=== PATIENT | male | born 1955 | race Caucasian/White ===

== ENCOUNTER 2018-05-21 09:45 | Inpatient (IN) | payer MEDICARE, OTHER ==
[~2018-05-21] VITALS: Ht 175.3 cm; Wt 86.9 kg
[2018-05-21] MEDS ORDERED: methylPREDNISolone SOD SUCC 125 MG/2 ML ONE (09:53)
[2018-05-21] MEDS ORDERED: methylPREDNISolone SOD SUCC 125 MG/2 ML IVPush SCH (10:00)
[2018-05-21 10:16] LABS: BASOPHILS # (AUTO) 0.01 x10^3/uL (0-0.1); BASOPHILS % (AUTO) 0 % (0-1); EOSINOPHILS # (AUTO) 0.05 x10^3/uL (0-0.4); EOSINOPHILS % (AUTO) 0 % (1-7); LYMPHOCYTES # (AUTO) 0.46 x10^3/uL (1-3.4); LYMPHOCYTES % (AUTO) 3 % (22-44); MD NO; MEAN CORPUSCULAR HEMOGLOBIN 32.8 pg (27.5-34.5); MEAN CORPUSCULAR HGB CONC 33.1 g/dL (33.2-36.2); MEAN CORPUSCULAR VOLUME 99.2 fL (81-97); MEAN PLATELET VOLUME 9.3 fL (7.4-10.4); MONOCYTES # (AUTO) 0.92 x10^3/uL (0.2-0.8); MONOCYTES % (AUTO) 6 % (2-9); NEUTROPHILS # (AUTO) 14.18 x10^3/uL (1.8-6.8); NEUTROPHILS % (AUTO) 91 % (42-75); PLATELET COUNT 216 x10^3/uL (130-400); RED BLOOD COUNT 4.47 x10^6/uL (4.38-5.82); RED CELL DISTRIBUTION WIDTH 12.8 % (9.4-14.8)
[2018-05-21 10:28] LABS: INTERNATIONAL NORMALIZED RATIO 1.16 (0.93-1.1); PROTHROMBIN TIME 12.2 Seconds (9.6-11.5)
[2018-05-21 10:29] LABS: ALBUMIN 3.4 g/dL (3.4-5.0); ANION GAP 4 mmol/L (5-15); CALCIUM 8.4 mg/dL (8.5-10.1); CHLORIDE 109 mmol/L (98-107)
[2018-05-21] MEDS ORDERED: methylPREDNISolone SOD SUCC 125 MG/2 ML IVPush ONE (10:30)
[2018-05-21 10:33] LABS: TROPONIN I 0.039 ng/mL (0.000-0.045)
[2018-05-21] MEDS ORDERED: SODIUM CHLORIDE FLUSH 10ML SYR IVF ONE (11:00)
[2018-05-21] MEDS ORDERED: CEFTRIAXONE PMX 1GM/50ML 50 ML IV ONE (11:30)
[2018-05-21] MEDS ORDERED: AZITHROMYCIN 500 MG in SODIUM CHLORIDE 0.9% 250 ML IV ONE (11:30)
[2018-05-21] MEDS ORDERED: SODIUM CHLORIDE 0.9% 1,000ML IVBOLUS ONE (11:30)
[2018-05-21] MEDS ORDERED: ALBU0.63 NEB (11:38)
[2018-05-21] MEDS ORDERED: TIOT18CA INH (11:38)
[2018-05-21] MEDS ORDERED: TRAM50TA2 PO (11:38)
[2018-05-21] MEDS ORDERED: BUDE10.2 INH (11:38)
[2018-05-21] MEDS ORDERED: ONDANSETRON 2MG/ML, 2ML IVPush PRN (12:00)
[2018-05-21] MEDS ORDERED: POLYETHYLENE GLYCOL 17 GM PACKET PO PRN (12:00)
[2018-05-21] MEDS ORDERED: PLEASE ENTER ALLERGIES MC SCH (12:00)
[2018-05-21] MEDS: TEMPLATE NON-FORMULARY MED. (Tiotropium Bromide** (Spiriva**) 18 MCG) INH SCH (12:00)
[2018-05-21] MEDS ORDERED: GUAIFENESIN/DM 200-20MG, 10ML UDC PO PRN (12:00)
[2018-05-21] MEDS: BUDESONIDE 0.5 MG/2 ML INHA INH SCH ×2 (12:00→19:12)
[2018-05-21] MEDS ORDERED: DOCUSATE 100 MG CAPSULE PO PRN (12:00)
[2018-05-21] MEDS ORDERED: ACETAMINOPHEN 325 MG TABLET PO PRN (12:00)
[2018-05-21 12:20] VITALS: BP 107/72
[2018-05-21] MEDS: ENOXAPARIN 40 MG/0.4 ML SQ SCH (12:41)
[2018-05-21] MEDS: methylPREDNISolone SOD SUCC 125 MG/2 ML IVPush SCH ×2 (13:30→22:07)
[2018-05-21] MEDS: CEFTRIAXONE PMX 1GM/50ML 50 ML IV SCH (13:30)
[2018-05-21 16:31] VITALS: BP 134/90
[2018-05-21] MEDS: ALBUTEROL/IPRATROPIUM 2.5MG/0.5MG, 3 ML NPPB SCH (18:01)
[2018-05-21 19:30] VITALS: BP 126/68
[2018-05-21] MEDS: SODIUM CHLORIDE FLUSH 10ML SYR IVF SCH (20:18)
[2018-05-22 01:34] VITALS: BP 109/57
[2018-05-22] MEDS: ALBUTEROL/IPRATROPIUM 2.5MG/0.5MG, 3 ML NPPB PRN (04:00)
[2018-05-22] MEDS: methylPREDNISolone SOD SUCC 125 MG/2 ML IVPush SCH ×3 (05:46→21:13)
[2018-05-22 05:51] LABS: CHLORIDE 107 mmol/L (98-107)
[2018-05-22 06:04] LABS: ANION GAP 8 mmol/L (5-15); CALCIUM 8.2 mg/dL (8.5-10.1); CREATININE 1.14 mg/dL (0.7-1.3)
[2018-05-22] MEDS: ALBUTEROL/IPRATROPIUM 2.5MG/0.5MG, 3 ML NPPB SCH ×4 (06:53→19:57)
[2018-05-22] MEDS: BUDESONIDE 0.5 MG/2 ML INHA INH SCH ×2 (06:53→19:57)
[2018-05-22 07:02] VITALS: BP 112/63
[2018-05-22] MEDS: TEMPLATE NON-FORMULARY MED. (Tiotropium Bromide** (Spiriva**) 18 MCG) INH SCH (09:00)
[2018-05-22] MEDS: SENNA/DOCUSATE TABLET PO SCH (09:00)
[2018-05-22] MEDS: SODIUM CHLORIDE FLUSH 10ML SYR IVF SCH ×2 (09:01→20:05)
[2018-05-22 12:32] VITALS: BP 117/68
[2018-05-22] MEDS: ENOXAPARIN 40 MG/0.4 ML SQ SCH (12:46)
[2018-05-22] MEDS: LORazepam 0.5MG TABLET PO PRN ×2 (12:50→18:30)
[2018-05-22] MEDS: AZITHROMYCIN 500 MG in SODIUM CHLORIDE 0.9% 250 ML IV SCH (12:50)
[2018-05-22] MEDS: CEFTRIAXONE PMX 1GM/50ML 50 ML IV SCH (14:06)
[2018-05-22] MEDS ORDERED: MAGNESIUM SULFATE PMX 2GM/50ML 50 ML IV ONE (14:30)
[2018-05-22 18:31] VITALS: BP 127/79
[2018-05-23 01:14] VITALS: BP 124/66
[2018-05-23] MEDS: LORazepam 0.5MG TABLET PO PRN ×4 (04:22→19:56)
[2018-05-23] MEDS: ALBUTEROL/IPRATROPIUM 2.5MG/0.5MG, 3 ML NPPB PRN (04:26)
[2018-05-23] MEDS: methylPREDNISolone SOD SUCC 125 MG/2 ML IVPush SCH ×3 (05:18→21:38)
[2018-05-23 05:38] LABS: ANION GAP 7 mmol/L (5-15); CALCIUM 8.4 mg/dL (8.5-10.1); CHLORIDE 103 mmol/L (98-107)
[2018-05-23] MEDS: BUDESONIDE 0.5 MG/2 ML INHA INH SCH ×2 (07:22→18:43)
[2018-05-23] MEDS: ALBUTEROL/IPRATROPIUM 2.5MG/0.5MG, 3 ML NPPB SCH ×4 (07:22→18:43)
[2018-05-23 07:43] VITALS: BP 127/69
[2018-05-23] MEDS: TEMPLATE NON-FORMULARY MED. (Tiotropium Bromide** (Spiriva**) 18 MCG) INH SCH (08:10)
[2018-05-23] MEDS: SODIUM CHLORIDE FLUSH 10ML SYR IVF SCH ×2 (10:19→20:00)
[2018-05-23] MEDS: SENNA/DOCUSATE TABLET PO SCH (10:19)
[2018-05-23] MEDS: AZITHROMYCIN 500 MG in SODIUM CHLORIDE 0.9% 250 ML IV SCH (11:33)
[2018-05-23] MEDS: ENOXAPARIN 40 MG/0.4 ML SQ SCH (11:33)
[2018-05-23] MEDS: CEFTRIAXONE PMX 1GM/50ML 50 ML IV SCH (13:40)
[2018-05-23 14:31] VITALS: BP 124/62
[2018-05-23 18:37] VITALS: BP 132/84
[2018-05-24 00:44] VITALS: BP 141/79
[2018-05-24] MEDS: ALBUTEROL/IPRATROPIUM 2.5MG/0.5MG, 3 ML NPPB SCH ×5 (01:24→18:58)
[2018-05-24] MEDS: methylPREDNISolone SOD SUCC 125 MG/2 ML IVPush SCH ×3 (05:34→21:13)
[2018-05-24] MEDS: BUDESONIDE 0.5 MG/2 ML INHA INH SCH ×2 (06:28→18:58)
[2018-05-24 07:08] VITALS: BP 143/84
[2018-05-24] MEDS: LORazepam 0.5MG TABLET PO PRN ×5 (07:28→23:36)
[2018-05-24] MEDS: SODIUM CHLORIDE FLUSH 10ML SYR IVF SCH ×2 (09:00→21:00)
[2018-05-24] MEDS: SENNA/DOCUSATE TABLET PO SCH (09:00)
[2018-05-24] MEDS: TEMPLATE NON-FORMULARY MED. (Tiotropium Bromide** (Spiriva**) 18 MCG) INH SCH (09:00)
[2018-05-24] MEDS: AZITHROMYCIN 500 MG in SODIUM CHLORIDE 0.9% 250 ML IV SCH (11:42)
[2018-05-24] MEDS: ENOXAPARIN 40 MG/0.4 ML SQ SCH (13:00)
[2018-05-24 13:47] VITALS: BP 139/87
[2018-05-24] MEDS: CEFTRIAXONE PMX 1GM/50ML 50 ML IV SCH (14:25)
[2018-05-24 19:00] VITALS: BP 148/89
[2018-05-24] MEDS: ALBUTEROL/IPRATROPIUM 2.5MG/0.5MG, 3 ML NPPB PRN (22:31)
[2018-05-25 01:40] VITALS: BP 108/63
[2018-05-25 01:49] VITALS: BP 148/75
[2018-05-25] MEDS: ALBUTEROL/IPRATROPIUM 2.5MG/0.5MG, 3 ML NPPB PRN (03:16)
[2018-05-25] MEDS: LORazepam 0.5MG TABLET PO PRN ×5 (03:39→22:10)
[2018-05-25] MEDS: methylPREDNISolone SOD SUCC 125 MG/2 ML IVPush SCH ×3 (05:44→22:10)
[2018-05-25] MEDS: ALBUTEROL/IPRATROPIUM 2.5MG/0.5MG, 3 ML NPPB SCH ×4 (07:05→19:18)
[2018-05-25 07:23] VITALS: BP 127/85
[2018-05-25] MEDS: GUAIFENESIN 200 MG TABLET PO SCH ×4 (07:42→22:10)
[2018-05-25] MEDS: TEMPLATE NON-FORMULARY MED. (Tiotropium Bromide** (Spiriva**) 18 MCG) INH SCH (09:00)
[2018-05-25] MEDS: SODIUM CHLORIDE FLUSH 10ML SYR IVF SCH ×2 (09:00→21:00)
[2018-05-25] MEDS: SENNA/DOCUSATE TABLET PO SCH (09:00)
[2018-05-25] MEDS: BUDESONIDE 0.5 MG/2 ML INHA INH SCH ×2 (11:15→19:18)
[2018-05-25] MEDS: CEFTRIAXONE PMX 1GM/50ML 50 ML IV SCH (12:37)
[2018-05-25] MEDS: AZITHROMYCIN 500 MG in SODIUM CHLORIDE 0.9% 250 ML IV SCH (12:38)
[2018-05-25] MEDS: ENOXAPARIN 40 MG/0.4 ML SQ SCH (13:00)
[2018-05-25 13:29] VITALS: BP 143/93
[2018-05-25 18:50] VITALS: BP 144/82
[2018-05-26 01:16] VITALS: BP 140/79
[2018-05-26] MEDS: ALBUTEROL/IPRATROPIUM 2.5MG/0.5MG, 3 ML NPPB SCH ×6 (01:48→19:51)
[2018-05-26] MEDS: LORazepam 0.5MG TABLET PO PRN ×4 (03:20→21:13)
[2018-05-26] MEDS: methylPREDNISolone SOD SUCC 125 MG/2 ML IVPush SCH ×3 (06:29→22:36)
[2018-05-26] MEDS: GUAIFENESIN 200 MG TABLET PO SCH ×4 (06:29→21:14)
[2018-05-26] MEDS: BUDESONIDE 0.5 MG/2 ML INHA INH SCH ×2 (07:05→19:50)
[2018-05-26 07:30] VITALS: BP 129/73
[2018-05-26] MEDS: TEMPLATE NON-FORMULARY MED. (Tiotropium Bromide** (Spiriva**) 18 MCG) INH SCH (08:49)
[2018-05-26] MEDS: AZITHROMYCIN 500 MG TABLET PO SCH (08:49)
[2018-05-26] MEDS: AMOXICILLIN/CLAV 875-125MG TABLET PO SCH ×2 (08:49→21:14)
[2018-05-26] MEDS: SODIUM CHLORIDE FLUSH 10ML SYR IVF SCH ×2 (08:49→21:00)
[2018-05-26] MEDS: SENNA/DOCUSATE TABLET PO SCH (08:50)
[2018-05-26] MEDS: ENOXAPARIN 40 MG/0.4 ML SQ SCH (14:00)
[2018-05-26 14:11] VITALS: BP 133/78
[2018-05-26 18:58] VITALS: BP 130/84
[2018-05-27 01:51] VITALS: BP 132/76
[2018-05-27] MEDS: ALBUTEROL/IPRATROPIUM 2.5MG/0.5MG, 3 ML NPPB SCH ×6 (02:09→22:44)
[2018-05-27] MEDS: LORazepam 0.5MG TABLET PO PRN ×5 (02:17→20:23)
[2018-05-27] MEDS: methylPREDNISolone SOD SUCC 125 MG/2 ML IVPush SCH (06:05)
[2018-05-27] MEDS: GUAIFENESIN 200 MG TABLET PO SCH ×4 (06:05→20:24)
[2018-05-27 06:37] VITALS: BP 145/81
[2018-05-27] MEDS: BUDESONIDE 0.5 MG/2 ML INHA INH SCH ×2 (07:05→19:44)
[2018-05-27] MEDS: AZITHROMYCIN 500 MG TABLET PO SCH (08:16)
[2018-05-27] MEDS: AMOXICILLIN/CLAV 875-125MG TABLET PO SCH ×2 (08:16→20:24)
[2018-05-27] MEDS: SODIUM CHLORIDE FLUSH 10ML SYR IVF SCH ×2 (09:00→20:24)
[2018-05-27] MEDS: TEMPLATE NON-FORMULARY MED. (Tiotropium Bromide** (Spiriva**) 18 MCG) INH SCH (09:00)
[2018-05-27] MEDS: SENNA/DOCUSATE TABLET PO SCH (09:00)
[2018-05-27] MEDS ORDERED: AZIT500T5 PO (10:06)
[2018-05-27] MEDS ORDERED: GUAI200T3 PO (10:06)
[2018-05-27] MEDS ORDERED: PRED20TA PO (10:06)
[2018-05-27] MEDS ORDERED: AMOX1TAB12 PO (10:06)
[2018-05-27 11:46] VITALS: BP 142/89
[2018-05-27 12:00] VITALS: BP 142/89
[2018-05-27] MEDS: ENOXAPARIN 40 MG/0.4 ML SQ SCH (13:20)
[2018-05-27 19:21] VITALS: BP 139/82
[2018-05-28] MEDS: LORazepam 0.5MG TABLET PO PRN ×3 (00:33→09:00)
[2018-05-28 01:49] VITALS: BP 136/80
[2018-05-28] MEDS: GUAIFENESIN 200 MG TABLET PO SCH (05:47)
[2018-05-28 06:03] VITALS: BP 140/89
[2018-05-28] MEDS: BUDESONIDE 0.5 MG/2 ML INHA INH SCH (07:40)
[2018-05-28] MEDS: SENNA/DOCUSATE TABLET PO SCH (09:00)
[2018-05-28] MEDS: AZITHROMYCIN 500 MG TABLET PO SCH (09:00)
[2018-05-28] MEDS: TEMPLATE NON-FORMULARY MED. (Tiotropium Bromide** (Spiriva**) 18 MCG) INH SCH (09:00)
[2018-05-28] MEDS: AMOXICILLIN/CLAV 875-125MG TABLET PO SCH (09:00)
[2018-05-28] MEDS: SODIUM CHLORIDE FLUSH 10ML SYR IVF SCH (09:01)
== END 2018-05-28 11:23 | disposition home or self-care (01) | DRG 871 ==
LOC: ED 10:37 → EDIP 11:12 → SUATTDRO 11:34 → 3NE 12:00
PROVIDERS: ADMIT Family Medicine; ATTEND Family Medicine
DX: A41.9 Sepsis, unspecified organism (principal); J18.9 Pneumonia, unspecified organism; J96.21 Acute and chronic respiratory failure with hypoxia; J44.0 Chronic obstructive pulmonary disease with (acute) lower respiratory infection; J44.1 Chronic obstructive pulmonary disease with (acute) exacerbation; Z87.891 Personal history of nicotine dependence; Z99.81 Dependence on supplemental oxygen; Z83.3 Family history of diabetes mellitus
CPT/HCPCS: 36415; 71045; 80048; 82040; 83735; 83880; 84484; 85025; 85610; 85730; 87040; 93005; 93306; 94640; 94664; 96374; 99291; G0378; J0456; J0696; J7620; J7626; J2930; J3475; J7030; J7050; J7512

== ENCOUNTER 2018-08-26 13:53 | Inpatient (IN) | payer MEDICARE, OTHER ==
[~2018-08-26] VITALS: Ht 175.3 cm; Wt 79.0 kg
[~2018-08-26 13:53] MED LIST: ALBU0.63 NEB; AMOX1TAB12 PO; AZIT500T5 PO; BUDE10.2 INH; GUAI200T3 PO; PRED20TA PO; TIOT18CA INH; TRAM50TA2 PO
--- NOTE | 2018-08-26 14:05 | NUR ---
Pt presents to ED by care flight with c/o sob and increase in oxygen requirements from baseline for one day. Pt is on 5 L oxygen via facemask and remains above 90%. Pt is tachycardic in 130's s/p two breathing treatments with care flight. Pt is AOX4, cms is intact, skin is intact, pink, warm, and dry. NADN. Pt connected to all monitors. Call light within reach. Pt has 18g PIV placed in left forearm banquet captain. PT denies cp, n/v/d, trauma, lightheadedness, or dizziness.
[2018-08-26] MEDS ORDERED: SODIUM CHLORIDE 0.9% 1,000 ML IV ONE (14:10)
[2018-08-26] MEDS ORDERED: methylPREDNISolone SOD SUCC 125 MG/2 ML ONE ×2 (14:18→23:15)
[2018-08-26] MEDS ORDERED: ALBUTEROL SULFATE 2.5 MG/3 ML ONE (14:21)
[2018-08-26] MEDS ORDERED: DOXYCYCLINE 100 MG in DEXTROSE 5% 250 ML IV ONE (14:30)
[2018-08-26] MEDS ORDERED: methylPREDNISolone SOD SUCC 125 MG/2 ML IVP ONE (14:30)
[2018-08-26] MEDS ORDERED: SODIUM CHLORIDE FLUSH 10ML SYR IVF ONE (14:30)
[2018-08-26 14:44] LABS: BASOPHILS # (AUTO) 0.01 x10^3/uL (0-0.1); BASOPHILS % (AUTO) 0 % (0-1); EOSINOPHILS # (AUTO) 0.05 x10^3/uL (0-0.4); EOSINOPHILS % (AUTO) 1 % (1-7); LYMPHOCYTES # (AUTO) 0.28 x10^3/uL (1-3.4); LYMPHOCYTES % (AUTO) 3 % (22-44); MD NO; MEAN CORPUSCULAR HEMOGLOBIN 32.4 pg (27.5-34.5); MEAN CORPUSCULAR HGB CONC 33.1 g/dL (33.2-36.2); MEAN CORPUSCULAR VOLUME 97.9 fL (81-97); MEAN PLATELET VOLUME 8.9 fL (7.4-10.4); MONOCYTES # (AUTO) 0.96 x10^3/uL (0.2-0.8); MONOCYTES % (AUTO) 9 % (2-9); NEUTROPHILS # (AUTO) 8.85 x10^3/uL (1.8-6.8); NEUTROPHILS % (AUTO) 87 % (42-75); PLATELET COUNT 222 x10^3/uL (130-400); RED BLOOD COUNT 5.21 x10^6/uL (4.38-5.82); RED CELL DISTRIBUTION WIDTH 13.9 % (9.4-14.8)
[2018-08-26 14:57] LABS: ALANINE AMINOTRANSFERASE 34 U/L (12-78); ALBUMIN 3.8 g/dL (3.4-5.0); ANION GAP 9 mmol/L (5-15); CALCIUM 9.2 mg/dL (8.5-10.1); CHLORIDE 100 mmol/L (98-107); CREATININE 1.12 mg/dL (0.7-1.3)
[2018-08-26 15:02] LABS: ALKALINE PHOSPHATASE 103 U/L (45-117); BILIRUBIN,TOTAL 1.2 mg/dL (0.2-1.0); TOTAL PROTEIN 7.2 g/dL (6.4-8.2)
[2018-08-26 15:06] LABS: TROPONIN I 0.123 ng/mL (0.000-0.045)
--- NOTE | 2018-08-26 15:08 | NUR ---
Provided pt food tray per request and sprite and milk. ED MD aware. PIV fluids and medication infusing per EMAR. NADN. PT connected to all monitors. All safety measures in place. No other needs requested at this time. Call light within reach.
--- NOTE | 2018-08-26 15:12 | NUR ---
DR. DO NOTIFIED OF TROP=0.123.
[2018-08-26] MEDS ORDERED: ASPIRIN 81 MG TABLET CHEW PO ONE (15:30)
[2018-08-26] MEDS ORDERED: ASPIRIN 81 MG TABLET CHEW ONE (15:31)
[2018-08-26] MEDS ORDERED: METOPROLOL 1 MG/ML, 5ML IVPush STA (15:42)
[2018-08-26] MEDS ORDERED: LORazepam 2 MG/ML, 1ML IVPush ONE (16:00)
[2018-08-26] MEDS ORDERED: morphine SULFATE 10 MG/ML, 1ML IVPush PRN (16:00)
[2018-08-26] MEDS ORDERED: ONDANSETRON ODT 4 MG PO PRN (16:00)
[2018-08-26] MEDS ORDERED: ONDANSETRON 2MG/ML, 2ML IVPush PRN (16:00)
[2018-08-26] MEDS ORDERED: LABETALOL 5MG/ML, 20ML IVPush PRN (16:00)
[2018-08-26] MEDS ORDERED: POLYETHYLENE GLYCOL 17 GM PACKET PO PRN (16:00)
[2018-08-26 16:45] LABS: INTERNATIONAL NORMALIZED RATIO 1.02 (0.93-1.1); PROTHROMBIN TIME 10.7 Seconds (9.6-11.5)
[2018-08-26] MEDS: methylPREDNISolone SOD SUCC 125 MG/2 ML IVPush SCH ×2 (17:05→23:56)
[2018-08-26] MEDS: DOXYCYCLINE 100MG TABLET PO SCH ×2 (17:05→23:56)
[2018-08-26 17:33] LABS: TROPONIN I 0.186 ng/mL (0.000-0.045)
[2018-08-26] MEDS ORDERED: CEFAZOLIN PMX 1GM/50ML 50 ML ONE (17:38)
[2018-08-26] MEDS ORDERED: METOPROLOL 1 MG/ML, 5ML ONE (17:38)
[2018-08-26] MEDS ORDERED: LORazepam 2 MG/ML, 1ML ONE (17:39)
[2018-08-26] MEDS: CEFTRIAXONE PMX 1GM/50ML 50 ML IV SCH (17:49)
--- NOTE | 2018-08-26 18:04 | NUR ---
Pt provided medication per EMAR. NADN. PIV medicaiton infusing per EMAR. PT connected to all monitors. Pt watching TV. All safety measures in place.
--- NOTE | 2018-08-26 18:56 | NUR ---
Provided report to LOLA Hamilton. All questions answered. LOLA Hamilton to assume care of pt.
--- NOTE | 2018-08-26 19:31 | NUR ---
PT RESTING IN BED WITH EYES CLOSED. NO STATED COMPLAINTS AT THIS TIME. CALL LIGHT WITHIN REACH.
--- NOTE | 2018-08-26 20:06 | NUR ---
PT RESTING IN BED WITH EYES CLOSED. BILAT BEDRAILS UP.
--- NOTE | 2018-08-26 21:22 | NUR ---
PT REMAINS RESTING IN BED WITH EYES CLOSED. WILL CONTINUE TO MONITOR.
[2018-08-26] MEDS ORDERED: HEPARIN 5,000 UNITS/ML, 1ML IV ONE (22:00)
[2018-08-26 22:28] LABS: TROPONIN I 0.129 ng/mL (0.000-0.045)
--- NOTE | 2018-08-26 22:32 | NUR ---
PT RESTING IN BED. PT GIVEN REQUESTED BEVERAGES AND CRACKERS. PT REMAINS ON MONITORS.
[2018-08-26] MEDS ORDERED: HEPARIN 5,000 UNITS/ML, 1ML ONE (23:14)
[2018-08-26] MEDS ORDERED: DOXYCYCLINE 100MG TABLET ONE (23:15)
[2018-08-26] MEDS ORDERED: HEPARIN 25,000 UNITS/500ML PMX 500 ML ONE (23:15)
--- NOTE | 2018-08-26 23:57 | NUR ---
PT MEDICATED WITH ORDERED MEDS. PT ABLE TO REPOSITION HIMSELF IN BED. ALL NEEDS ADDRESSED. WILL CONTINUE TO MONITOR.
[2018-08-27] MEDS: HEPARIN 25,000 UNITS/500ML PMX 500 ML IV PRN (00:24)
--- NOTE | 2018-08-27 00:30 | NUR ---
ORDERED HEPARIN DRIP STARTED.
--- NOTE | 2018-08-27 01:11 | NUR ---
PT RESTING IN BED WITH EYES CLOSED. BILAT BEDRAILS UP. CALL LIGHT WITHIN REACH.
--- NOTE | 2018-08-27 02:03 | NUR ---
PT REMAINS RESTING IN BED WITH EYES CLOSED. NO NEEDS AT THIS TIME.
--- NOTE | 2018-08-27 03:04 | NUR ---
PT RESTING IN BED WITH EYES CLOSED.
--- NOTE | 2018-08-27 04:02 | NUR ---
PT UP WATCHING TV. NO STATED NEEDS. PT NOT IN DISTRESS.
--- NOTE | 2018-08-27 05:27 | NUR ---
PT RESTING CALMLY IN BED, WITH EYES CLOSED, RESP EVEN AND NON-LABORED. NO STATED NEEDS AT THIS TIME.
--- NOTE | 2018-08-27 06:29 | NUR ---
PT SITTING UP IN BED WATCHING TV. PT GIVEN BEVERAGE AND CRACKERS PER REQUEST. NO COMPLAINTS AT THIS TIME. WILL CONTINUE TO MONITOR.
[2018-08-27 06:44] LABS: ALANINE AMINOTRANSFERASE 31 U/L (12-78); ALBUMIN 3.1 g/dL (3.4-5.0); ANION GAP 7 mmol/L (5-15); CALCIUM 8.8 mg/dL (8.5-10.1); CHLORIDE 101 mmol/L (98-107); CREATININE 0.98 mg/dL (0.7-1.3)
[2018-08-27 06:49] LABS: ALKALINE PHOSPHATASE 80 U/L (45-117); BILIRUBIN,TOTAL 0.5 mg/dL (0.2-1.0); TOTAL PROTEIN 6.3 g/dL (6.4-8.2); TROPONIN I 0.067 ng/mL (0.000-0.045)
[2018-08-27 06:56] LABS: BASOPHILS # (AUTO) 0.01 x10^3/uL (0-0.1); BASOPHILS % (AUTO) 0 % (0-1); EOSINOPHILS % (AUTO) 0 % (1-7); LYMPHOCYTES # (AUTO) 0.21 x10^3/uL (1-3.4); LYMPHOCYTES % (AUTO) 5 % (22-44); MD NO; MEAN CORPUSCULAR HEMOGLOBIN 32.5 pg (27.5-34.5); MEAN CORPUSCULAR HGB CONC 33.4 g/dL (33.2-36.2); MEAN CORPUSCULAR VOLUME 97.3 fL (81-97); MEAN PLATELET VOLUME 8.6 fL (7.4-10.4); MONOCYTES # (AUTO) 0.18 x10^3/uL (0.2-0.8); MONOCYTES % (AUTO) 4 % (2-9); NEUTROPHILS % (AUTO) 91 % (42-75); PLATELET COUNT 196 x10^3/uL (130-400); RED BLOOD COUNT 4.59 x10^6/uL (4.38-5.82); RED CELL DISTRIBUTION WIDTH 13.2 % (9.4-14.8)
[2018-08-27] MEDS ORDERED: methylPREDNISolone SOD SUCC 125 MG/2 ML ONE ×2 (07:07→12:30)
[2018-08-27] MEDS: methylPREDNISolone SOD SUCC 125 MG/2 ML IVPush SCH ×3 (07:10→18:27)
--- NOTE | 2018-08-27 08:48 | NUR ---
cardiac rhythm strip printed/placed on chart
--- NOTE | 2018-08-27 09:27 | NUR ---
LATE ENTRY FOR 0700, SBAR RPT REC'D, AND PT CARE ASSUMED. PT OOB TO CHAIR, TRANSFERED ONTO HOSPITAL BED. VSS, PT WITH INCREASED SOB WITH ACTIVITY. RECOVERS AFTER PURSE LIP BREATHING.
[2018-08-27] MEDS: IPRATROPIUM 0.5 MG/2.5 ML INHA NPPB SCH ×2 (09:42→15:35)
[2018-08-27] MEDS ORDERED: IPRATROPIUM 0.5 MG/2.5 ML INHA ONE (09:42)
[2018-08-27 09:47] LABS: MICROSCOPIC INDICATED
--- NOTE | 2018-08-27 10:00 | NUR ---
RT CALLED PER PATIENT REQUEST. I FEEL TIGHT AND COULD USE A BREATHING TX. NO WHEEZING APPRECIATED/ POX 95%. HOWEVER WOB INCREASED (3 WORD SENTENCES) REMAINS ON 4L NC. RT TO BEDSIDE WHERE NEBULIZER WAS INITIATED WITH "GREAT IMPROVEMENT" PER PATIENT. PATIENT REMAINS ON HEPARIN DRIP W/ OUT COMPLICATION. REPEAT XA PLANNED FOR 12 NOON. ATE MOST OF BREAKFAST AND DENIES DISCOMFORT POST NEBULIZER. IN BED W/ CALL MILLER IN HAND/SIDERAILS UP. WILL CONTINUE TO MONITOR
[2018-08-27 10:05] LABS: CULTURE INDICATED? NO
[2018-08-27 10:08] LABS: AMPHETAMINE SCREEN, URINE Negative (Negative); BARBITURATE SCREEN, URINE Negative (Negative); BENZODIAZEPINE SCREEN, URINE Negative (Negative); CANNABINOID SCREEN, URINE Negative (Negative); COCAINE SCREEN, URINE Negative (Negative); METHADONE SCREEN, URINE Negative (Negative); OPIATE SCREEN, URINE Negative (Negative)
[2018-08-27] MEDS ORDERED: SENNA/DOCUSATE TABLET ONE (12:30)
[2018-08-27] MEDS ORDERED: PANTOPRAZOLE 40 MG IV ONE (12:30)
[2018-08-27] MEDS: SENNA/DOCUSATE TABLET PO SCH (12:35)
[2018-08-27] MEDS: PANTOPRAZOLE 40 MG IV IVPush SCH (12:35)
[2018-08-27] MEDS ORDERED: DOXYCYCLINE 100MG TABLET ONE (12:42)
[2018-08-27] MEDS: DOXYCYCLINE 100MG TABLET PO SCH (12:43)
[2018-08-27] MEDS ORDERED: HEPARIN 5,000 UNITS/ML, 1ML ONE (12:56)
[2018-08-27] MEDS: HEPARIN 5,000 UNITS/ML, 1ML IV PRN (13:02)
--- NOTE | 2018-08-27 13:05 | NUR ---
BREAK RN: HEPARIN ADJUSTED ORDERED, VERIFIED BY 2 RNS- MALINI AND DAVIAN. PATIENT C/O INCREASED ANXIETY WITH SOB, SP02 REMAINS NORMAL, PT GIVEN MEAL TRAY, TOLERATES WELL. WILL CONTINUE TO MONITOR.
--- NOTE | 2018-08-27 13:20 | NUR ---
REPORT CALLED TO LOLA GRANT. PLAN OF CARE DISCUSSED. PT AWARE OF PLAN.
[2018-08-27 14:23] VITALS: BP 114/68
[2018-08-27] MEDS ORDERED: SODIUM CHLORIDE 0.45% 1,000 ML IV SCH (15:00)
[2018-08-27] MEDS ORDERED: LORazepam 2 MG/ML, 1ML IVPush ONE (15:30)
[2018-08-27] MEDS ORDERED: LORazepam 0.5MG TABLET PO PRN ×2 (15:30→18:00)
[2018-08-27] MEDS: GUAIFENESIN 200 MG TABLET PO SCH ×2 (17:43→21:00)
[2018-08-27] MEDS ORDERED: BUDE10.2 INH (18:04)
[2018-08-27] MEDS: CEFTRIAXONE PMX 1GM/50ML 50 ML IV SCH (18:27)
[2018-08-27] MEDS ORDERED: ALBUTEROL/IPRATROPIUM 2.5MG/0.5MG, 3 ML NPPB PRN (19:00)
[2018-08-27] MEDS ORDERED: LABETALOL 5 MG/ML SYRINGE IVPush PRN (20:00)
[2018-08-27] MEDS: PROPOFOL 100 ML IV PRN ×2 (20:12→23:40)
[2018-08-27] MEDS: BUDESONIDE 0.5 MG/2 ML INHA NPPB SCH (21:00)
[2018-08-27] MEDS ORDERED: methylPREDNISolone SOD SUCC 125 MG/2 ML IVPush SCH (21:00)
[2018-08-27] MEDS ORDERED: IPRATROPIUM 0.5 MG/2.5 ML INHA HHN SCH (21:00)
[2018-08-27] MEDS ORDERED: PROPOFOL 100 ML IV PRN (21:13)
[2018-08-27] MEDS: ALBUTEROL/IPRATROPIUM 2.5MG/0.5MG, 3 ML INLINE SCH ×2 (21:30→22:35)
[2018-08-27] MEDS ORDERED: DEXTROSE 50%, 50ML SYRINGE IVPush PRN (21:30)
[2018-08-27] MEDS ORDERED: LIDOCAINE-MPF 1%, 2ML ENDO PRN (21:30)
[2018-08-27] MEDS ORDERED: GLUCAGON 1 MG IM PRN (21:30)
[2018-08-27] MEDS ORDERED: PHARMACY MAY ADJ FOR RENAL FX MC SCH (21:30)
[2018-08-27] MEDS ORDERED: BISACODYL 10 MG SUPP PR PRN (21:30)
[2018-08-27] MEDS ORDERED: SENNA/DOCUSATE TABLET NG PRN (21:30)
[2018-08-27] MEDS ORDERED: FAMOTIDINE 20 MG/2 ML IV SCH (21:30)
[2018-08-27] MEDS ORDERED: SENNOSIDES 8.8 MG/5 ML ORAL SOL NG PRN (21:30)
[2018-08-27] MEDS ORDERED: DEXTROSE 4 GM TAB.CHEW PO PRN (21:30)
[2018-08-27] MEDS ORDERED: LACTATED RINGERS 1,000 ML IV SCH (22:00)
[2018-08-27 22:41] LABS: MICROSCOPIC AUTO
[2018-08-27 22:43] LABS: CULTURE INDICATED? NO
[2018-08-27 22:45] LABS: TROPONIN I 0.426 ng/mL (0.000-0.045)
[2018-08-27 22:50] LABS: ALANINE AMINOTRANSFERASE 36 U/L (12-78); ALBUMIN 3.2 g/dL (3.4-5.0); ANION GAP 7 mmol/L (5-15); CALCIUM 8.5 mg/dL (8.5-10.1); CHLORIDE 102 mmol/L (98-107); CREATININE 1.25 mg/dL (0.7-1.3); TRIGLYCERIDES 71 mg/dL (50-200)
[2018-08-27 22:52] LABS: ALKALINE PHOSPHATASE 67 U/L (45-117); BILIRUBIN,TOTAL 0.6 mg/dL (0.2-1.0); TOTAL PROTEIN 6.2 g/dL (6.4-8.2)
[2018-08-27] MEDS ORDERED: ALBUTEROL/IPRATROPIUM 2.5MG/0.5MG, 3 ML INLINE SCH (23:00)
[2018-08-28] MEDS: DOXYCYCLINE 100 MG in DEXTROSE 5% 250 ML IV SCH ×3 (00:07→23:28)
[2018-08-28] MEDS: HEPARIN 25,000 UNITS/500ML PMX 500 ML IV PRN ×2 (01:59→21:39)
[2018-08-28] MEDS: HEPARIN 5,000 UNITS/ML, 1ML IV PRN (02:03)
[2018-08-28] MEDS: ALBUTEROL/IPRATROPIUM 2.5MG/0.5MG, 3 ML INLINE SCH ×6 (02:36→22:19)
[2018-08-28] MEDS ORDERED: methylPREDNISolone SOD SUCC 40 MG/ML IVPush SCH (03:00)
[2018-08-28 04:00] VITALS: BP 110/75
[2018-08-28] MEDS: PROPOFOL 100 ML IV PRN ×5 (04:46→22:39)
[2018-08-28 04:53] LABS: MEAN CORPUSCULAR HEMOGLOBIN 32.9 pg (27.5-34.5); MEAN CORPUSCULAR HGB CONC 33.5 g/dL (33.2-36.2); MEAN CORPUSCULAR VOLUME 98.1 fL (81-97); MEAN PLATELET VOLUME 9.5 fL (7.4-10.4); PLATELET COUNT 193 x10^3/uL (130-400); RED BLOOD COUNT 4.15 x10^6/uL (4.38-5.82); RED CELL DISTRIBUTION WIDTH 13.5 % (9.4-14.8)
[2018-08-28 05:01] LABS: ALANINE AMINOTRANSFERASE 31 U/L (12-78); ALBUMIN 2.9 g/dL (3.4-5.0); ANION GAP 6 mmol/L (5-15); CALCIUM 8.4 mg/dL (8.5-10.1); CHLORIDE 102 mmol/L (98-107); CREATININE 1.03 mg/dL (0.7-1.3)
[2018-08-28 05:05] LABS: ALKALINE PHOSPHATASE 60 U/L (45-117); BILIRUBIN,TOTAL 0.4 mg/dL (0.2-1.0); TOTAL PROTEIN 5.6 g/dL (6.4-8.2)
[2018-08-28 05:39] LABS: MD YES
[2018-08-28 05:41] LABS: BAND#(MANUAL) 2.11 x10^3/uL; BANDS%(MANUAL) 13 % (0-7); LYMPH#(MANUAL) 0.16 x10^3/uL (1-3.4); LYMPHS% (MANUAL) 1 % (22-44); MONOS#(MANUAL) 0.16 x10^3/uL (0.3-2.7); MONOS% (MANUAL) 1 % (2-9); SEG#(MANUAL) 13.77 x10^3/uL (1.8-6.8); SEGS% (MANUAL) 85 % (42-75)
[2018-08-28 05:42] LABS: <PLATELET ESTIMATE> ADEQUATE; <PLT MORPHOLOGY> NORMAL PLT MORPH; <RBC MORPHOLOGY> NORMAL
[2018-08-28] MEDS: BUDESONIDE 0.5 MG/2 ML INHA NPPB SCH ×2 (06:39→18:41)
[2018-08-28] MEDS ORDERED: INSULIN LISPRO 100 UNITS/ML, PEN SQ-INSULIN SCH ×2 (07:00)
[2018-08-28] MEDS ORDERED: MAGNESIUM SULFATE PMX 2GM/50ML 50 ML IV ONE (09:30)
[2018-08-28] MEDS: methylPREDNISolone SOD SUCC 125 MG/2 ML IVPush SCH ×3 (09:50→21:49)
[2018-08-28] MEDS: SODIUM CHLORIDE FLUSH 10ML SYR IVF SCH ×2 (09:50→20:24)
[2018-08-28] MEDS: PANTOPRAZOLE 40 MG IV IVPush SCH (09:50)
[2018-08-28] MEDS: SENNA/DOCUSATE TABLET PO SCH (09:50)
--- NOTE | 2018-08-28 10:34 | NUR ---
TF GOAL: w/ propofol: PROMOTE @ 70ml/hr off propofol: PROMOTE @ 80ml/hr
[2018-08-28] MEDS: INSULIN LISPRO 100 UNITS/ML, PEN LOW DOSE SS SQ-INSULIN SCH ×2 (12:00→17:56)
[2018-08-28 13:43] LABS: CHOLESTEROL, TOTAL 148 mg/dL (140-239); TRIGLYCERIDES 94 mg/dL (50-200); VLDL CHOLESTEROL 19 mg/dL (0-25)
[2018-08-28 13:46] LABS: CHOL/HDL RATIO 1.9; HDL CHOL % 53 % (26-37); HDL CHOLESTEROL (DIRECT) 79 mg/dL (40-60); LDL CHOLESTEROL,CALCULATED 50 mg/dL (54-169); LDL/HDL RATIO 0.6 (0.5-3.0); TROPONIN I 0.992 ng/mL (0.000-0.045)
[2018-08-28] MEDS: FENTANYL PF 100 MCG/2ML IVPush PRN ×3 (17:46→22:33)
[2018-08-28] MEDS: CEFTRIAXONE PMX 1GM/50ML 50 ML IV SCH (17:53)
[2018-08-28] MEDS: ATORVASTATIN 40 MG TABLET PO SCH (20:23)
[2018-08-28] MEDS ORDERED: INSULIN GLARGINE 100 UNITS/ML, PEN SQ-INSULIN SCH (21:00)
[2018-08-28] MEDS: FENTANYL PF 2,500 MCG in SODIUM CHLORIDE 0.9% 200 ML IV PRN (23:19)
[2018-08-29] MEDS: INSULIN LISPRO 100 UNITS/ML, PEN LOW DOSE SS SQ-INSULIN SCH ×2 (00:04→05:48)
[2018-08-29] MEDS: ALBUTEROL/IPRATROPIUM 2.5MG/0.5MG, 3 ML INLINE SCH ×6 (03:24→22:24)
[2018-08-29] MEDS: methylPREDNISolone SOD SUCC 125 MG/2 ML IVPush SCH ×2 (03:45→09:23)
[2018-08-29 04:00] VITALS: BP_SYST 108; BP_SYST 156; BP_DIAS 65; BP_DIAS 79
[2018-08-29 04:50] LABS: BASOPHILS % (AUTO) 0 % (0-1); EOSINOPHILS # (AUTO) 0.14 x10^3/uL (0-0.4); EOSINOPHILS % (AUTO) 1 % (1-7); LYMPHOCYTES # (AUTO) 0.26 x10^3/uL (1-3.4); LYMPHOCYTES % (AUTO) 2 % (22-44); MD NO; MEAN CORPUSCULAR HEMOGLOBIN 32.9 pg (27.5-34.5); MEAN CORPUSCULAR HGB CONC 33.8 g/dL (33.2-36.2); MEAN CORPUSCULAR VOLUME 97.3 fL (81-97); MEAN PLATELET VOLUME 9.9 fL (7.4-10.4); MONOCYTES # (AUTO) 0.51 x10^3/uL (0.2-0.8); MONOCYTES % (AUTO) 5 % (2-9); NEUTROPHILS # (AUTO) 10.49 x10^3/uL (1.8-6.8); NEUTROPHILS % (AUTO) 92 % (42-75); PLATELET COUNT 162 x10^3/uL (130-400); RED BLOOD COUNT 3.84 x10^6/uL (4.38-5.82); RED CELL DISTRIBUTION WIDTH 13.5 % (9.4-14.8)
[2018-08-29] MEDS: ASPIRIN 325 MG TABLET PO SCH (05:50)
[2018-08-29] MEDS: BUDESONIDE 0.5 MG/2 ML INHA NPPB SCH ×2 (07:00→18:19)
[2018-08-29] MEDS: PROPOFOL 100 ML IV PRN ×4 (07:14→22:17)
[2018-08-29 08:16] LABS: ANION GAP 7 mmol/L (5-15); CALCIUM 8.5 mg/dL (8.5-10.1); CHLORIDE 100 mmol/L (98-107); CREATININE 1.07 mg/dL (0.7-1.3)
[2018-08-29 09:00] VITALS: BP 116/72
[2018-08-29] MEDS: PANTOPRAZOLE 40 MG IV IVPush SCH (09:22)
[2018-08-29] MEDS: SENNA/DOCUSATE TABLET PO SCH (09:22)
[2018-08-29] MEDS: FUROSEMIDE 40 MG/4 ML IV SCH (09:22)
[2018-08-29] MEDS: SODIUM CHLORIDE FLUSH 10ML SYR IVF SCH ×2 (09:23→20:05)
[2018-08-29] MEDS: PIPERACILLIN/TAZO/PMX 3.375GM 50 ML IV SCH ×3 (10:43→21:28)
[2018-08-29] MEDS: ENOXAPARIN 80 MG/0.8 ML SQ SCH ×2 (10:43→21:59)
[2018-08-29] MEDS: INSULIN GLARGINE 100 UNITS/ML, PEN SQ-INSULIN SCH ×2 (10:45→20:08)
[2018-08-29] MEDS: INSULIN LISPRO 100 UNITS/ML, PEN MEDIUM DOSE SS SQ-INSULIN SCH ×3 (10:46→23:38)
[2018-08-29] MEDS: DOXYCYCLINE 100 MG in DEXTROSE 5% 250 ML IV SCH ×2 (12:35→23:34)
[2018-08-29] MEDS: methylPREDNISolone SOD SUCC 40 MG/ML IVPush SCH ×2 (15:59→21:59)
[2018-08-29] MEDS: ATORVASTATIN 40 MG TABLET PO SCH (20:05)
[2018-08-30] MEDS: PROPOFOL 100 ML IV PRN ×5 (02:13→23:00)
[2018-08-30] MEDS: ALBUTEROL/IPRATROPIUM 2.5MG/0.5MG, 3 ML INLINE SCH ×6 (02:22→22:14)
[2018-08-30] MEDS: methylPREDNISolone SOD SUCC 40 MG/ML IVPush SCH ×4 (03:47→22:31)
[2018-08-30] MEDS: PIPERACILLIN/TAZO/PMX 3.375GM 50 ML IV SCH ×2 (03:47→10:23)
[2018-08-30 04:00] VITALS: BP 108/64
[2018-08-30 04:52] LABS: BASOPHILS % (AUTO) 0 % (0-1); EOSINOPHILS % (AUTO) 0 % (1-7); LYMPHOCYTES # (AUTO) 0.24 x10^3/uL (1-3.4); LYMPHOCYTES % (AUTO) 2 % (22-44); MD NO; MEAN CORPUSCULAR HEMOGLOBIN 33.2 pg (27.5-34.5); MEAN CORPUSCULAR HGB CONC 33.6 g/dL (33.2-36.2); MEAN CORPUSCULAR VOLUME 98.7 fL (81-97); MEAN PLATELET VOLUME 10.2 fL (7.4-10.4); MONOCYTES # (AUTO) 0.57 x10^3/uL (0.2-0.8); MONOCYTES % (AUTO) 6 % (2-9); NEUTROPHILS # (AUTO) 9.69 x10^3/uL (1.8-6.8); NEUTROPHILS % (AUTO) 92 % (42-75); PLATELET COUNT 138 x10^3/uL (130-400); RED BLOOD COUNT 3.71 x10^6/uL (4.38-5.82); RED CELL DISTRIBUTION WIDTH 13.1 % (9.4-14.8)
[2018-08-30] MEDS: FENTANYL PF 2,500 MCG in SODIUM CHLORIDE 0.9% 200 ML IV PRN (05:59)
[2018-08-30] MEDS: ASPIRIN 325 MG TABLET PO SCH (06:00)
[2018-08-30] MEDS: INSULIN LISPRO 100 UNITS/ML, PEN MEDIUM DOSE SS SQ-INSULIN SCH ×3 (06:10→18:17)
[2018-08-30 07:48] LABS: ANION GAP 5 mmol/L (5-15); CALCIUM 8.4 mg/dL (8.5-10.1); CHLORIDE 100 mmol/L (98-107); CREATININE 1.11 mg/dL (0.7-1.3)
[2018-08-30] MEDS: FUROSEMIDE 40 MG/4 ML IV SCH ×2 (08:25→13:03)
[2018-08-30] MEDS: SENNA/DOCUSATE TABLET PO SCH (08:32)
[2018-08-30] MEDS: PANTOPRAZOLE 40 MG IV IVPush SCH (08:32)
[2018-08-30] MEDS: QUETIAPINE 25MG TABLET PO SCH ×2 (08:33→20:52)
[2018-08-30] MEDS: INSULIN GLARGINE 100 UNITS/ML, PEN SQ-INSULIN SCH ×2 (08:34→20:53)
[2018-08-30 09:00] VITALS: BP 102/64
[2018-08-30] MEDS: BUDESONIDE 0.5 MG/2 ML INHA NPPB SCH ×2 (09:00→18:53)
[2018-08-30] MEDS: ENOXAPARIN 80 MG/0.8 ML SQ SCH ×2 (10:00→13:02)
[2018-08-30] MEDS: SODIUM CHLORIDE FLUSH 10ML SYR IVF SCH (10:23)
[2018-08-30] MEDS ORDERED: AcetaZOLAMIDE INJ 500 MG IVPush STA (10:49)
[2018-08-30] MEDS: DOXYCYCLINE 100 MG in DEXTROSE 5% 250 ML IV SCH (13:07)
[2018-08-30] MEDS ORDERED: AMPICILLIN/SULBACTAM 3 GM in SODIUM CHLORIDE 0.9% 100 ML IV SCH (13:30)
[2018-08-30] MEDS: AMPICILLIN/SULBACTAM 3 GM in SODIUM CHLORIDE 0.9% 50 ML IV SCH ×2 (14:28→20:51)
[2018-08-30] MEDS: ATORVASTATIN 40 MG TABLET PO SCH (20:53)
[2018-08-31] MEDS: ENOXAPARIN 80 MG/0.8 ML SQ SCH ×2 (00:08→11:11)
[2018-08-31] MEDS: INSULIN LISPRO 100 UNITS/ML, PEN MEDIUM DOSE SS SQ-INSULIN SCH ×4 (00:10→20:08)
[2018-08-31] MEDS: ALBUTEROL/IPRATROPIUM 2.5MG/0.5MG, 3 ML INLINE SCH ×6 (02:15→21:50)
[2018-08-31] MEDS: AMPICILLIN/SULBACTAM 3 GM in SODIUM CHLORIDE 0.9% 50 ML IV SCH ×4 (02:49→20:28)
[2018-08-31 04:00] VITALS: BP 115/68
[2018-08-31] MEDS: methylPREDNISolone SOD SUCC 40 MG/ML IVPush SCH ×4 (04:18→22:20)
[2018-08-31] MEDS: PROPOFOL 100 ML IV PRN ×4 (04:19→21:00)
[2018-08-31 05:09] LABS: BASOPHILS % (AUTO) 0 % (0-1); EOSINOPHILS % (AUTO) 0 % (1-7); LYMPHOCYTES # (AUTO) 0.24 x10^3/uL (1-3.4); LYMPHOCYTES % (AUTO) 2 % (22-44); MD NO; MEAN CORPUSCULAR HEMOGLOBIN 32.9 pg (27.5-34.5); MEAN CORPUSCULAR HGB CONC 33.8 g/dL (33.2-36.2); MEAN CORPUSCULAR VOLUME 97.6 fL (81-97); MEAN PLATELET VOLUME 10.4 fL (7.4-10.4); MONOCYTES # (AUTO) 0.92 x10^3/uL (0.2-0.8); MONOCYTES % (AUTO) 7 % (2-9); NEUTROPHILS # (AUTO) 11.31 x10^3/uL (1.8-6.8); NEUTROPHILS % (AUTO) 91 % (42-75); PLATELET COUNT 162 x10^3/uL (130-400); RED BLOOD COUNT 3.93 x10^6/uL (4.38-5.82); RED CELL DISTRIBUTION WIDTH 13.3 % (9.4-14.8)
[2018-08-31] MEDS: ASPIRIN 325 MG TABLET PO SCH (05:42)
[2018-08-31] MEDS: BUDESONIDE 0.5 MG/2 ML INHA NPPB SCH ×2 (09:00→21:50)
[2018-08-31] MEDS: PANTOPRAZOLE 40 MG IV IVPush SCH (09:50)
[2018-08-31] MEDS: SENNA/DOCUSATE TABLET PO SCH (09:51)
[2018-08-31] MEDS: QUETIAPINE 25MG TABLET PO SCH ×2 (09:55→20:09)
[2018-08-31] MEDS: INSULIN GLARGINE 100 UNITS/ML, PEN SQ-INSULIN SCH ×2 (09:58→20:09)
[2018-08-31 10:33] LABS: ANION GAP 6 mmol/L (5-15); CALCIUM 8.5 mg/dL (8.5-10.1); CHLORIDE 102 mmol/L (98-107); CREATININE 1.03 mg/dL (0.7-1.3)
[2018-08-31] MEDS: FENTANYL PF 2,500 MCG in SODIUM CHLORIDE 0.9% 200 ML IV PRN (14:41)
[2018-08-31] MEDS: ATORVASTATIN 40 MG TABLET PO SCH (20:09)
[2018-09-01] MEDS: ENOXAPARIN 80 MG/0.8 ML SQ SCH ×3 (00:06→23:56)
[2018-09-01] MEDS: INSULIN LISPRO 100 UNITS/ML, PEN MEDIUM DOSE SS SQ-INSULIN SCH ×4 (01:58→20:00)
[2018-09-01] MEDS: ALBUTEROL/IPRATROPIUM 2.5MG/0.5MG, 3 ML INLINE SCH ×6 (02:13→21:40)
[2018-09-01] MEDS: AMPICILLIN/SULBACTAM 3 GM in SODIUM CHLORIDE 0.9% 50 ML IV SCH ×4 (02:19→20:49)
[2018-09-01] MEDS: PROPOFOL 100 ML IV PRN ×2 (02:49→18:42)
[2018-09-01 04:00] VITALS: BP 116/70
[2018-09-01 04:21] LABS: MEAN CORPUSCULAR HEMOGLOBIN 31.9 pg (27.5-34.5); MEAN CORPUSCULAR HGB CONC 32.6 g/dL (33.2-36.2); MEAN CORPUSCULAR VOLUME 97.9 fL (81-97); MEAN PLATELET VOLUME 10.3 fL (7.4-10.4); PLATELET COUNT 168 x10^3/uL (130-400); RED BLOOD COUNT 3.92 x10^6/uL (4.38-5.82); RED CELL DISTRIBUTION WIDTH 13.1 % (9.4-14.8)
[2018-09-01] MEDS: methylPREDNISolone SOD SUCC 40 MG/ML IVPush SCH ×2 (04:27→16:28)
[2018-09-01] MEDS: ASPIRIN 325 MG TABLET PO SCH (04:27)
[2018-09-01 04:53] LABS: BASOPHILS # (AUTO) 0.02 x10^3/uL (0-0.1); BASOPHILS % (AUTO) 0 % (0-1); EOSINOPHILS % (AUTO) 0 % (1-7); LYMPHOCYTES % (AUTO) 3 % (22-44); MD SCAN; MONOCYTES # (AUTO) 0.78 x10^3/uL (0.2-0.8); MONOCYTES % (AUTO) 8 % (2-9); NEUTROPHILS # (AUTO) 8.76 x10^3/uL (1.8-6.8); NEUTROPHILS % (AUTO) 89 % (42-75)
[2018-09-01 06:00] VITALS: BP 108/64
[2018-09-01 07:23] LABS: ANION GAP 5 mmol/L (5-15); CALCIUM 8.8 mg/dL (8.5-10.1); CHLORIDE 105 mmol/L (98-107)
[2018-09-01 07:24] LABS: CREATININE 0.93 mg/dL (0.7-1.3)
[2018-09-01] MEDS: BUDESONIDE 0.5 MG/2 ML INHA NPPB SCH ×2 (09:00→18:51)
[2018-09-01] MEDS: METOCLOPRAMIDE 5 MG/ML, 2ML IVPush PRN (09:24)
[2018-09-01] MEDS: QUETIAPINE 25MG TABLET PO SCH ×2 (09:24→21:10)
[2018-09-01] MEDS: FUROSEMIDE 40 MG/4 ML IV SCH (09:25)
[2018-09-01] MEDS: PANTOPRAZOLE 40 MG IV IVPush SCH (09:25)
[2018-09-01] MEDS: INSULIN GLARGINE 100 UNITS/ML, PEN SQ-INSULIN SCH ×2 (09:30→21:11)
[2018-09-01] MEDS: SENNA/DOCUSATE TABLET PO SCH (09:32)
[2018-09-01] MEDS ORDERED: LORazepam 2 MG/ML, 1ML ONE (09:59)
[2018-09-01] MEDS ORDERED: LORazepam 2 MG/ML, 1ML IVPush ONE (10:00)
[2018-09-01] MEDS: DEXMEDETOMIDINE 1,000 MCG in SODIUM CHLORIDE 0.9% 240 ML IV PRN (12:57)
[2018-09-01] MEDS ORDERED: MIDAZOLAM 1 MG/ML, 5ML ONE (15:57)
[2018-09-01] MEDS ORDERED: PROPOFOL 10 MG/ML, 100ML IV ONE (15:57)
[2018-09-01] MEDS ORDERED: SUCCINYLCHOLINE 20 MG/ML, 10ML ONE (15:57)
[2018-09-01] MEDS: ATORVASTATIN 40 MG TABLET PO SCH (21:10)
[2018-09-02] MEDS: PROPOFOL 100 ML IV PRN ×4 (01:14→17:37)
[2018-09-02] MEDS: INSULIN LISPRO 100 UNITS/ML, PEN MEDIUM DOSE SS SQ-INSULIN SCH ×4 (02:00→20:31)
[2018-09-02] MEDS: ALBUTEROL/IPRATROPIUM 2.5MG/0.5MG, 3 ML INLINE SCH ×6 (02:05→22:00)
[2018-09-02] MEDS: AMPICILLIN/SULBACTAM 3 GM in SODIUM CHLORIDE 0.9% 50 ML IV SCH ×2 (02:46→09:16)
[2018-09-02 04:00] VITALS: BP 124/79
[2018-09-02] MEDS: methylPREDNISolone SOD SUCC 40 MG/ML IVPush SCH (04:07)
[2018-09-02] MEDS: ASPIRIN 325 MG TABLET PO SCH (04:08)
[2018-09-02] MEDS: METOCLOPRAMIDE 5 MG/ML, 2ML IVPush PRN (04:18)
[2018-09-02] MEDS: LACTULOSE 20 GM/30 ML UDC NG PRN (04:18)
[2018-09-02 04:43] LABS: BASOPHILS # (AUTO) 0.03 x10^3/uL (0-0.1); BASOPHILS % (AUTO) 0 % (0-1); EOSINOPHILS % (AUTO) 0 % (1-7); LYMPHOCYTES # (AUTO) 0.62 x10^3/uL (1-3.4); LYMPHOCYTES % (AUTO) 6 % (22-44); MD NO; MEAN CORPUSCULAR HGB CONC 33.7 g/dL (33.2-36.2); MEAN CORPUSCULAR VOLUME 97.9 fL (81-97); MEAN PLATELET VOLUME 10.2 fL (7.4-10.4); MONOCYTES # (AUTO) 1.32 x10^3/uL (0.2-0.8); MONOCYTES % (AUTO) 13 % (2-9); NEUTROPHILS # (AUTO) 8.12 x10^3/uL (1.8-6.8); NEUTROPHILS % (AUTO) 80 % (42-75); PLATELET COUNT 181 x10^3/uL (130-400); RED BLOOD COUNT 4.09 x10^6/uL (4.38-5.82); RED CELL DISTRIBUTION WIDTH 13.3 % (9.4-14.8)
[2018-09-02 04:54] LABS: ANION GAP 3 mmol/L (5-15); CALCIUM 8.7 mg/dL (8.5-10.1); CHLORIDE 107 mmol/L (98-107); CREATININE 0.93 mg/dL (0.7-1.3); TRIGLYCERIDES 142 mg/dL (50-200)
[2018-09-02] MEDS: BUDESONIDE 0.5 MG/2 ML INHA NPPB SCH ×2 (07:19→18:23)
[2018-09-02 09:00] VITALS: BP 97/64
[2018-09-02] MEDS ORDERED: AcetaZOLAMIDE INJ 500 MG IVPush SCH (09:00)
[2018-09-02] MEDS: PANTOPRAZOLE 40 MG IV IVPush SCH (09:15)
[2018-09-02] MEDS: methylPREDNISolone SOD SUCC 125 MG/2 ML IVPush SCH ×3 (09:15→22:26)
[2018-09-02] MEDS: METOCLOPRAMIDE 5 MG/ML, 2ML IVPush SCH ×3 (09:15→22:26)
[2018-09-02] MEDS: SENNA/DOCUSATE TABLET PO SCH (09:16)
[2018-09-02] MEDS: QUETIAPINE 25MG TABLET PO SCH ×2 (09:16→17:36)
[2018-09-02] MEDS: ENOXAPARIN 80 MG/0.8 ML SQ SCH (12:53)
[2018-09-02] MEDS ORDERED: QUETIAPINE 25MG TABLET PO SCH (13:00)
[2018-09-02] MEDS: AMPICILLIN/SULBACTAM 3 GM in SODIUM CHLORIDE 0.9% 100 ML IV SCH ×2 (16:01→20:31)
[2018-09-02] MEDS: FENTANYL PF 2,500 MCG in SODIUM CHLORIDE 0.9% 200 ML IV PRN (18:33)
[2018-09-02] MEDS: ATORVASTATIN 40 MG TABLET PO SCH (20:31)
[2018-09-02] MEDS ORDERED: LINEZOLID PMX 600MG/300ML 300 ML IV SCH (23:30)
[2018-09-02] MEDS ORDERED: MEROPENEM 1 GM in SODIUM CHLORIDE 0.9% 100 ML IV SCH (23:30)
[2018-09-03 00:14] LABS: CULTURE INDICATED? YES; MICROSCOPIC INDICATED
[2018-09-03] MEDS: ENOXAPARIN 80 MG/0.8 ML SQ SCH (00:25)
[2018-09-03] MEDS: PROPOFOL 100 ML IV PRN ×3 (01:18→14:37)
[2018-09-03] MEDS: QUETIAPINE 25MG TABLET PO SCH ×3 (01:45→18:01)
[2018-09-03] MEDS: LACTULOSE 20 GM/30 ML UDC NG PRN (01:45)
[2018-09-03] MEDS: ALBUTEROL/IPRATROPIUM 2.5MG/0.5MG, 3 ML INLINE SCH ×6 (02:00→22:48)
[2018-09-03] MEDS: INSULIN LISPRO 100 UNITS/ML, PEN MEDIUM DOSE SS SQ-INSULIN SCH ×4 (02:31→20:58)
[2018-09-03 04:00] VITALS: BP 118/78
[2018-09-03] MEDS: methylPREDNISolone SOD SUCC 125 MG/2 ML IVPush SCH ×4 (04:12→21:43)
[2018-09-03] MEDS: ASPIRIN 325 MG TABLET PO SCH (04:12)
[2018-09-03] MEDS: METOCLOPRAMIDE 5 MG/ML, 2ML IVPush SCH ×4 (04:12→20:57)
[2018-09-03 04:42] LABS: MEAN CORPUSCULAR HEMOGLOBIN 32.6 pg (27.5-34.5); MEAN CORPUSCULAR HGB CONC 32.8 g/dL (33.2-36.2); MEAN CORPUSCULAR VOLUME 99.3 fL (81-97); MEAN PLATELET VOLUME 10.2 fL (7.4-10.4); PLATELET COUNT 193 x10^3/uL (130-400); RED BLOOD COUNT 3.95 x10^6/uL (4.38-5.82); RED CELL DISTRIBUTION WIDTH 13.3 % (9.4-14.8)
[2018-09-03 04:51] LABS: ANION GAP 4 mmol/L (5-15); CALCIUM 8.4 mg/dL (8.5-10.1); CHLORIDE 111 mmol/L (98-107); CREATININE 1.17 mg/dL (0.7-1.3)
[2018-09-03 05:07] LABS: BASOPHILS # (AUTO) 0.09 x10^3/uL (0-0.1); BASOPHILS % (AUTO) 1 % (0-1); EOSINOPHILS % (AUTO) 0 % (1-7); LYMPHOCYTES # (AUTO) 0.24 x10^3/uL (1-3.4); LYMPHOCYTES % (AUTO) 2 % (22-44); MD SCAN; MONOCYTES % (AUTO) 9 % (2-9); NEUTROPHILS # (AUTO) 13.34 x10^3/uL (1.8-6.8); NEUTROPHILS % (AUTO) 89 % (42-75)
[2018-09-03] MEDS ORDERED: CEFTRIAXONE PMX 1GM/50ML 50 ML IV SCH (06:30)
[2018-09-03] MEDS: PANTOPRAZOLE 40 MG IV IVPush SCH (08:26)
[2018-09-03] MEDS: PIPERACILLIN/TAZO/PMX 3.375GM 50 ML IV SCH ×3 (08:26→20:56)
[2018-09-03] MEDS: BUDESONIDE 0.5 MG/2 ML INHA NPPB SCH ×2 (09:15→22:48)
[2018-09-03] MEDS: SENNA/DOCUSATE TABLET PO SCH (09:25)
[2018-09-03] MEDS: DOXYCYCLINE 50 MG/5 ML ORAL SUSP PO SCH ×2 (09:26→20:56)
[2018-09-03] MEDS: FUROSEMIDE 20 MG/2 ML IV SCH (10:55)
[2018-09-03] MEDS: HEPARIN 5,000 UNITS/ML, 1ML SQ SCH ×2 (12:28→20:00)
[2018-09-03] MEDS: ATORVASTATIN 40 MG TABLET PO SCH (20:56)
[2018-09-04] MEDS: PIPERACILLIN/TAZO/PMX 3.375GM 50 ML IV SCH ×4 (01:01→20:32)
[2018-09-04] MEDS: QUETIAPINE 25MG TABLET PO SCH ×3 (01:03→16:38)
[2018-09-04] MEDS: PROPOFOL 100 ML IV PRN (01:48)
[2018-09-04] MEDS: ALBUTEROL/IPRATROPIUM 2.5MG/0.5MG, 3 ML INLINE SCH ×6 (02:09→22:23)
[2018-09-04] MEDS: methylPREDNISolone SOD SUCC 125 MG/2 ML IVPush SCH ×4 (04:18→22:45)
[2018-09-04] MEDS: METOCLOPRAMIDE 5 MG/ML, 2ML IVPush SCH ×4 (04:18→22:45)
[2018-09-04] MEDS: HEPARIN 5,000 UNITS/ML, 1ML SQ SCH ×3 (04:23→20:55)
[2018-09-04] MEDS: INSULIN LISPRO 100 UNITS/ML, PEN MEDIUM DOSE SS SQ-INSULIN SCH ×4 (04:27→20:59)
[2018-09-04 04:48] LABS: BASOPHILS % (AUTO) 1 % (0-1); EOSINOPHILS % (AUTO) 0 % (1-7); LYMPHOCYTES # (AUTO) 0.26 x10^3/uL (1-3.4); LYMPHOCYTES % (AUTO) 3 % (22-44); MD NO; MEAN CORPUSCULAR HGB CONC 32.6 g/dL (33.2-36.2); MEAN CORPUSCULAR VOLUME 98.3 fL (81-97); MEAN PLATELET VOLUME 10.8 fL (7.4-10.4); MONOCYTES # (AUTO) 0.81 x10^3/uL (0.2-0.8); MONOCYTES % (AUTO) 8 % (2-9); NEUTROPHILS # (AUTO) 9.42 x10^3/uL (1.8-6.8); NEUTROPHILS % (AUTO) 89 % (42-75); PLATELET COUNT 193 x10^3/uL (130-400); RED BLOOD COUNT 3.75 x10^6/uL (4.38-5.82); RED CELL DISTRIBUTION WIDTH 13.2 % (9.4-14.8)
[2018-09-04 04:53] LABS: ANION GAP 6 mmol/L (5-15); CALCIUM 8.6 mg/dL (8.5-10.1); CHLORIDE 111 mmol/L (98-107)
[2018-09-04 04:54] LABS: CREATININE 0.96 mg/dL (0.7-1.3)
[2018-09-04] MEDS: ASPIRIN 325 MG TABLET PO SCH (05:26)
[2018-09-04] MEDS: BUDESONIDE 0.5 MG/2 ML INHA NPPB SCH ×2 (06:30→22:23)
[2018-09-04] MEDS: SENNA/DOCUSATE TABLET PO SCH (07:16)
[2018-09-04] MEDS: PANTOPRAZOLE 40 MG IV IVPush SCH (07:32)
[2018-09-04] MEDS: DOXYCYCLINE 50 MG/5 ML ORAL SUSP PO SCH ×2 (08:25→20:51)
[2018-09-04] MEDS: FUROSEMIDE 20 MG/2 ML IV SCH (08:25)
[2018-09-04] MEDS ORDERED: DEXMEDETOMIDINE 1,000 MCG in SODIUM CHLORIDE 0.9% 240 ML IV PRN (08:30)
[2018-09-04] MEDS: INSULIN GLARGINE 100 UNITS/ML, PEN SQ-INSULIN SCH ×2 (11:13→21:00)
[2018-09-04] MEDS: FENTANYL PF 100 MCG/2ML IVPush PRN ×2 (13:29→21:52)
[2018-09-04] MEDS: ATORVASTATIN 40 MG TABLET PO SCH (20:42)
[2018-09-05] MEDS: QUETIAPINE 25MG TABLET PO SCH ×3 (02:23→17:32)
[2018-09-05] MEDS: PIPERACILLIN/TAZO/PMX 3.375GM 50 ML IV SCH ×4 (02:23→19:49)
[2018-09-05] MEDS: ALBUTEROL/IPRATROPIUM 2.5MG/0.5MG, 3 ML INLINE SCH ×6 (02:38→22:35)
[2018-09-05] MEDS: PROPOFOL 100 ML IV PRN (03:02)
[2018-09-05 04:46] LABS: MEAN CORPUSCULAR HEMOGLOBIN 32.7 pg (27.5-34.5); MEAN CORPUSCULAR HGB CONC 33.2 g/dL (33.2-36.2); MEAN CORPUSCULAR VOLUME 98.5 fL (81-97); MEAN PLATELET VOLUME 11.1 fL (7.4-10.4); PLATELET COUNT 198 x10^3/uL (130-400); RED BLOOD COUNT 3.82 x10^6/uL (4.38-5.82); RED CELL DISTRIBUTION WIDTH 13.2 % (9.4-14.8)
[2018-09-05 04:52] LABS: ANION GAP 4 mmol/L (5-15); CALCIUM 8.4 mg/dL (8.5-10.1); CHLORIDE 111 mmol/L (98-107); CREATININE 1.12 mg/dL (0.7-1.3); TRIGLYCERIDES 165 mg/dL (50-200)
[2018-09-05] MEDS: INSULIN LISPRO 100 UNITS/ML, PEN MEDIUM DOSE SS SQ-INSULIN SCH ×4 (05:06→21:18)
[2018-09-05] MEDS: methylPREDNISolone SOD SUCC 125 MG/2 ML IVPush SCH ×4 (05:07→23:55)
[2018-09-05] MEDS: ASPIRIN 325 MG TABLET PO SCH (05:07)
[2018-09-05] MEDS: METOCLOPRAMIDE 5 MG/ML, 2ML IVPush SCH ×2 (05:10→10:00)
[2018-09-05] MEDS: HEPARIN 5,000 UNITS/ML, 1ML SQ SCH ×3 (05:11→21:10)
[2018-09-05 05:23] LABS: BASOPHILS % (AUTO) 0 % (0-1); EOSINOPHILS % (AUTO) 0 % (1-7); LYMPHOCYTES # (AUTO) 0.31 x10^3/uL (1-3.4); LYMPHOCYTES % (AUTO) 3 % (22-44); MD SCAN; MONOCYTES # (AUTO) 0.66 x10^3/uL (0.2-0.8); MONOCYTES % (AUTO) 5 % (2-9); NEUTROPHILS # (AUTO) 11.78 x10^3/uL (1.8-6.8); NEUTROPHILS % (AUTO) 92 % (42-75)
[2018-09-05] MEDS: BUDESONIDE 0.5 MG/2 ML INHA NPPB SCH ×2 (06:20→22:35)
[2018-09-05] MEDS: DEXMEDETOMIDINE 1,000 MCG in SODIUM CHLORIDE 0.9% 240 ML IV PRN (07:36)
[2018-09-05] MEDS: SENNA/DOCUSATE TABLET PO SCH (09:00)
[2018-09-05] MEDS: PANTOPRAZOLE 40 MG IV IVPush SCH (10:54)
[2018-09-05] MEDS: DOXYCYCLINE 50 MG/5 ML ORAL SUSP PO SCH (10:54)
[2018-09-05] MEDS: FUROSEMIDE 20 MG/2 ML IV SCH (10:54)
[2018-09-05] MEDS: FENTANYL PF 100 MCG/2ML IVPush PRN ×2 (11:09→19:00)
[2018-09-05] MEDS: INSULIN GLARGINE 100 UNITS/ML, PEN SQ-INSULIN SCH ×2 (11:17→21:19)
[2018-09-05] MEDS: ATORVASTATIN 40 MG TABLET PO SCH (19:33)
[2018-09-06] MEDS: QUETIAPINE 25MG TABLET PO SCH ×2 (01:41→09:06)
[2018-09-06] MEDS: PIPERACILLIN/TAZO/PMX 3.375GM 50 ML IV SCH ×4 (01:41→21:07)
[2018-09-06] MEDS: ALBUTEROL/IPRATROPIUM 2.5MG/0.5MG, 3 ML INLINE SCH ×6 (02:22→21:54)
[2018-09-06] MEDS: FENTANYL PF 100 MCG/2ML IVPush PRN (03:00)
[2018-09-06] MEDS: INSULIN LISPRO 100 UNITS/ML, PEN MEDIUM DOSE SS SQ-INSULIN SCH ×4 (04:29→21:11)
[2018-09-06 04:50] LABS: MEAN CORPUSCULAR HEMOGLOBIN 31.6 pg (27.5-34.5); MEAN CORPUSCULAR HGB CONC 31.9 g/dL (33.2-36.2); MEAN CORPUSCULAR VOLUME 98.9 fL (81-97); PLATELET COUNT 232 x10^3/uL (130-400); RED BLOOD COUNT 4.13 x10^6/uL (4.38-5.82); RED CELL DISTRIBUTION WIDTH 13.3 % (9.4-14.8)
[2018-09-06 04:56] LABS: ANION GAP 5 mmol/L (5-15); CALCIUM 8.7 mg/dL (8.5-10.1); CHLORIDE 112 mmol/L (98-107)
[2018-09-06 04:57] LABS: CREATININE 1.06 mg/dL (0.7-1.3)
[2018-09-06 05:23] LABS: BASOPHILS # (AUTO) 0.07 x10^3/uL (0-0.1); BASOPHILS % (AUTO) 0 % (0-1); EOSINOPHILS % (AUTO) 0 % (1-7); LYMPHOCYTES # (AUTO) 0.31 x10^3/uL (1-3.4); LYMPHOCYTES % (AUTO) 2 % (22-44); MD SCAN; MONOCYTES # (AUTO) 0.74 x10^3/uL (0.2-0.8); MONOCYTES % (AUTO) 4 % (2-9); NEUTROPHILS # (AUTO) 16.49 x10^3/uL (1.8-6.8); NEUTROPHILS % (AUTO) 94 % (42-75)
[2018-09-06] MEDS: ASPIRIN 325 MG TABLET PO SCH (06:15)
[2018-09-06] MEDS: HEPARIN 5,000 UNITS/ML, 1ML SQ SCH ×3 (06:15→21:07)
[2018-09-06] MEDS: methylPREDNISolone SOD SUCC 125 MG/2 ML IVPush SCH ×3 (06:15→18:43)
[2018-09-06] MEDS: BUDESONIDE 0.5 MG/2 ML INHA NPPB SCH ×2 (06:45→18:27)
[2018-09-06] MEDS: PANTOPRAZOLE 40 MG IV IVPush SCH (07:24)
[2018-09-06] MEDS: SENNA/DOCUSATE TABLET PO SCH (09:00)
[2018-09-06] MEDS: FUROSEMIDE 20 MG/2 ML IV SCH (09:05)
[2018-09-06] MEDS: INSULIN GLARGINE 100 UNITS/ML, PEN SQ-INSULIN SCH ×2 (09:33→21:10)
[2018-09-06] MEDS: ATORVASTATIN 40 MG TABLET PO SCH (21:07)
[2018-09-07] MEDS: methylPREDNISolone SOD SUCC 125 MG/2 ML IVPush SCH ×2 (00:11→05:50)
[2018-09-07] MEDS: ALBUTEROL/IPRATROPIUM 2.5MG/0.5MG, 3 ML INLINE SCH ×3 (01:24→10:22)
[2018-09-07] MEDS: PIPERACILLIN/TAZO/PMX 3.375GM 50 ML IV SCH ×4 (02:58→20:15)
[2018-09-07 04:48] LABS: MEAN CORPUSCULAR HGB CONC 33.5 g/dL (33.2-36.2); MEAN CORPUSCULAR VOLUME 98.4 fL (81-97); MEAN PLATELET VOLUME 9.9 fL (7.4-10.4); PLATELET COUNT 199 x10^3/uL (130-400); RED BLOOD COUNT 3.84 x10^6/uL (4.38-5.82); RED CELL DISTRIBUTION WIDTH 12.7 % (9.4-14.8)
[2018-09-07 04:56] LABS: ANION GAP 3 mmol/L (5-15); CALCIUM 8.6 mg/dL (8.5-10.1); CHLORIDE 107 mmol/L (98-107); CREATININE 0.78 mg/dL (0.7-1.3)
[2018-09-07] MEDS: INSULIN LISPRO 100 UNITS/ML, PEN MEDIUM DOSE SS SQ-INSULIN SCH (05:14)
[2018-09-07 05:17] LABS: BASOPHILS # (AUTO) 0.03 x10^3/uL (0-0.1); BASOPHILS % (AUTO) 0 % (0-1); EOSINOPHILS % (AUTO) 0 % (1-7); LYMPHOCYTES # (AUTO) 0.39 x10^3/uL (1-3.4); LYMPHOCYTES % (AUTO) 2 % (22-44); MD SCAN; MONOCYTES # (AUTO) 0.53 x10^3/uL (0.2-0.8); MONOCYTES % (AUTO) 3 % (2-9); NEUTROPHILS # (AUTO) 19.17 x10^3/uL (1.8-6.8); NEUTROPHILS % (AUTO) 95 % (42-75)
[2018-09-07] MEDS: HEPARIN 5,000 UNITS/ML, 1ML SQ SCH ×3 (05:50→20:16)
[2018-09-07] MEDS: ASPIRIN 325 MG TABLET PO SCH (05:51)
[2018-09-07] MEDS: BUDESONIDE 0.5 MG/2 ML INHA NPPB SCH ×2 (06:48→21:00)
[2018-09-07] MEDS: PANTOPRAZOLE 40 MG IV IVPush SCH (07:04)
[2018-09-07] MEDS: SENNA/DOCUSATE TABLET PO SCH (08:22)
[2018-09-07] MEDS: FUROSEMIDE 20 MG/2 ML IV SCH (08:55)
[2018-09-07] MEDS: INSULIN GLARGINE 100 UNITS/ML, PEN SQ-INSULIN SCH ×2 (08:56→20:17)
[2018-09-07] MEDS: INSULIN LISPRO 100 UNITS/ML, PEN SQ-INSULIN SCH ×3 (11:42→20:16)
[2018-09-07] MEDS: methylPREDNISolone SOD SUCC 40 MG/ML IVPush SCH ×2 (11:54→20:16)
[2018-09-07 19:05] VITALS: BP 129/76
[2018-09-07] MEDS: ATORVASTATIN 40 MG TABLET PO SCH (20:16)
[2018-09-08 01:13] VITALS: BP 127/76
[2018-09-08] MEDS: ALBUTEROL/IPRATROPIUM 2.5MG/0.5MG, 3 ML NPPB PRN ×2 (01:20→20:35)
[2018-09-08] MEDS: PIPERACILLIN/TAZO/PMX 3.375GM 50 ML IV SCH ×4 (02:39→20:55)
[2018-09-08] MEDS: HEPARIN 5,000 UNITS/ML, 1ML SQ SCH ×3 (04:10→20:55)
[2018-09-08 04:57] LABS: MEAN CORPUSCULAR HEMOGLOBIN 33.2 pg (27.5-34.5); MEAN CORPUSCULAR HGB CONC 33.9 g/dL (33.2-36.2); MEAN CORPUSCULAR VOLUME 97.9 fL (81-97); MEAN PLATELET VOLUME 10.6 fL (7.4-10.4); PLATELET COUNT 232 x10^3/uL (130-400); RED BLOOD COUNT 3.97 x10^6/uL (4.38-5.82); RED CELL DISTRIBUTION WIDTH 12.7 % (9.4-14.8)
[2018-09-08] MEDS: methylPREDNISolone SOD SUCC 40 MG/ML IVPush SCH ×3 (05:01→20:55)
[2018-09-08] MEDS: PANTOPROZOLE 40MG TABLET PO SCH (05:02)
[2018-09-08] MEDS: ASPIRIN 325 MG TABLET PO SCH (05:02)
[2018-09-08 05:05] LABS: ANION GAP 3 mmol/L (5-15); CALCIUM 8.5 mg/dL (8.5-10.1); CHLORIDE 103 mmol/L (98-107); CREATININE 0.84 mg/dL (0.7-1.3)
[2018-09-08 05:45] LABS: BASOPHILS # (AUTO) 0.01 x10^3/uL (0-0.1); BASOPHILS % (AUTO) 0 % (0-1); EOSINOPHILS # (AUTO) 0.42 x10^3/uL (0-0.4); EOSINOPHILS % (AUTO) 2 % (1-7); LYMPHOCYTES # (AUTO) 0.41 x10^3/uL (1-3.4); LYMPHOCYTES % (AUTO) 2 % (22-44); MD SCAN; MONOCYTES # (AUTO) 0.94 x10^3/uL (0.2-0.8); MONOCYTES % (AUTO) 4 % (2-9); NEUTROPHILS % (AUTO) 92 % (42-75)
[2018-09-08] MEDS: INSULIN LISPRO 100 UNITS/ML, PEN SQ-INSULIN SCH ×4 (07:00→20:56)
[2018-09-08] MEDS: BUDESONIDE 0.5 MG/2 ML INHA NPPB SCH ×2 (07:40→20:33)
[2018-09-08] MEDS: FUROSEMIDE 20 MG/2 ML IV SCH (08:48)
[2018-09-08] MEDS: SENNA/DOCUSATE TABLET PO SCH (08:59)
[2018-09-08] MEDS: INSULIN GLARGINE 100 UNITS/ML, PEN SQ-INSULIN SCH ×2 (11:11→20:56)
[2018-09-08 14:15] VITALS: BP 122/80
[2018-09-08 19:12] VITALS: BP 137/96
[2018-09-08] MEDS: ATORVASTATIN 40 MG TABLET PO SCH (20:55)
[2018-09-09 00:37] VITALS: BP 118/77
[2018-09-09] MEDS: PIPERACILLIN/TAZO/PMX 3.375GM 50 ML IV SCH (02:38)
[2018-09-09] MEDS: ALBUTEROL/IPRATROPIUM 2.5MG/0.5MG, 3 ML NPPB PRN ×2 (03:28→19:55)
[2018-09-09] MEDS: methylPREDNISolone SOD SUCC 40 MG/ML IVPush SCH (03:38)
[2018-09-09] MEDS: HEPARIN 5,000 UNITS/ML, 1ML SQ SCH ×3 (03:39→20:26)
[2018-09-09 05:39] LABS: CHLORIDE 102 mmol/L (98-107)
[2018-09-09 05:47] LABS: ALANINE AMINOTRANSFERASE 53 U/L (12-78); ALKALINE PHOSPHATASE 52 U/L (45-117); ANION GAP 4 mmol/L (5-15); BILIRUBIN,TOTAL 0.9 mg/dL (0.2-1.0); CALCIUM 8.5 mg/dL (8.5-10.1); CREATININE 0.88 mg/dL (0.7-1.3); TOTAL PROTEIN 6.2 g/dL (6.4-8.2)
[2018-09-09] MEDS: ASPIRIN 325 MG TABLET PO SCH (05:57)
[2018-09-09] MEDS: PANTOPROZOLE 40MG TABLET PO SCH (05:57)
[2018-09-09] MEDS: INSULIN LISPRO 100 UNITS/ML, PEN SQ-INSULIN SCH ×4 (07:00→20:27)
[2018-09-09 07:41] VITALS: BP 152/68
[2018-09-09 08:05] LABS: MD YES; MEAN CORPUSCULAR HEMOGLOBIN 32.4 pg (27.5-34.5); MEAN CORPUSCULAR HGB CONC 32.7 g/dL (33.2-36.2); MEAN CORPUSCULAR VOLUME 99.2 fL (81-97); MEAN PLATELET VOLUME 10.1 fL (7.4-10.4); PLATELET COUNT 240 x10^3/uL (130-400); RED BLOOD COUNT 4.33 x10^6/uL (4.38-5.82); RED CELL DISTRIBUTION WIDTH 13.1 % (9.4-14.8)
[2018-09-09 08:06] LABS: LYMPH#(MANUAL) 1.24 x10^3/uL (1-3.4); LYMPHS% (MANUAL) 4 % (22-44); MONOS#(MANUAL) 0.93 x10^3/uL (0.3-2.7); MONOS% (MANUAL) 3 % (2-9); SEG#(MANUAL) 28.83 x10^3/uL (1.8-6.8); SEGS% (MANUAL) 93 % (42-75)
[2018-09-09 08:07] LABS: <RBC MORPHOLOGY> NORMAL
[2018-09-09 08:08] LABS: <PLATELET ESTIMATE> ADEQUATE; LARGE PLATELETS 1+
[2018-09-09] MEDS: BUDESONIDE 0.5 MG/2 ML INHA NPPB SCH ×2 (08:50→19:55)
[2018-09-09] MEDS: SENNA/DOCUSATE TABLET PO SCH (10:22)
[2018-09-09] MEDS: FUROSEMIDE 20 MG/2 ML IV SCH (10:22)
[2018-09-09] MEDS: predniSONE 50MG TABLET PO SCH (10:22)
[2018-09-09] MEDS: INSULIN GLARGINE 100 UNITS/ML, PEN SQ-INSULIN SCH ×2 (10:24→20:26)
[2018-09-09] MEDS: AMPICILLIN/SULBACTAM 3 GM in SODIUM CHLORIDE 0.9% 100 ML IV SCH ×3 (12:11→19:45)
[2018-09-09 17:50] VITALS: BP 126/83
[2018-09-09] MEDS: ATORVASTATIN 40 MG TABLET PO SCH (20:25)
[2018-09-09 20:50] VITALS: BP 120/77
[2018-09-10 00:25] VITALS: BP 132/89
[2018-09-10] MEDS: AMPICILLIN/SULBACTAM 3 GM in SODIUM CHLORIDE 0.9% 100 ML IV SCH ×2 (01:37→07:49)
[2018-09-10 05:26] LABS: MEAN CORPUSCULAR HEMOGLOBIN 32.7 pg (27.5-34.5); MEAN CORPUSCULAR HGB CONC 33.3 g/dL (33.2-36.2); MEAN CORPUSCULAR VOLUME 98.4 fL (81-97); MEAN PLATELET VOLUME 10.4 fL (7.4-10.4); PLATELET COUNT 238 x10^3/uL (130-400); RED BLOOD COUNT 4.13 x10^6/uL (4.38-5.82); RED CELL DISTRIBUTION WIDTH 12.6 % (9.4-14.8)
[2018-09-10 05:38] LABS: CALCIUM 8.6 mg/dL (8.5-10.1)
[2018-09-10] MEDS: ASPIRIN 325 MG TABLET PO SCH (05:50)
[2018-09-10] MEDS: PANTOPROZOLE 40MG TABLET PO SCH (05:50)
[2018-09-10] MEDS: HEPARIN 5,000 UNITS/ML, 1ML SQ SCH ×3 (05:50→20:18)
[2018-09-10 05:54] LABS: MD YES
[2018-09-10 05:56] LABS: BAND#(MANUAL) 0.27 x10^3/uL; BANDS%(MANUAL) 1 % (0-7); LYMPHS% (MANUAL) 3 % (22-44); MONOS#(MANUAL) 1.88 x10^3/uL (0.3-2.7); MONOS% (MANUAL) 7 % (2-9); SEG#(MANUAL) 23.85 x10^3/uL (1.8-6.8); SEGS% (MANUAL) 89 % (42-75)
[2018-09-10 05:57] LABS: <RBC MORPHOLOGY> NORMAL
[2018-09-10 05:58] LABS: <PLATELET ESTIMATE> ADEQUATE; <PLT MORPHOLOGY> NORMAL PLT MORPH; ANION GAP 3 mmol/L (5-15); CHLORIDE 103 mmol/L (98-107)
[2018-09-10 06:49] VITALS: BP 111/63
[2018-09-10] MEDS: INSULIN LISPRO 100 UNITS/ML, PEN SQ-INSULIN SCH ×4 (07:26→20:27)
[2018-09-10] MEDS: predniSONE 50MG TABLET PO SCH (07:49)
[2018-09-10] MEDS: BUDESONIDE 0.5 MG/2 ML INHA NPPB SCH ×2 (08:10→20:33)
[2018-09-10] MEDS ORDERED: FUROSEMIDE 40 MG/4 ML ONE (08:52)
[2018-09-10] MEDS ORDERED: FUROSEMIDE 20 MG/2 ML IV SCH (09:00)
[2018-09-10] MEDS: FUROSEMIDE 40 MG/4 ML IV SCH (09:00)
[2018-09-10] MEDS: INSULIN GLARGINE 100 UNITS/ML, PEN SQ-INSULIN SCH ×2 (09:44→21:00)
[2018-09-10] MEDS: SENNA/DOCUSATE TABLET PO SCH (09:44)
[2018-09-10] MEDS: ALBUTEROL/IPRATROPIUM 2.5MG/0.5MG, 3 ML NPPB PRN (09:50)
[2018-09-10 09:58] LABS: TROPONIN I 0.168 ng/mL (0.000-0.045)
[2018-09-10] MEDS: PIPERACILLIN/TAZO/PMX 3.375GM 50 ML IV SCH ×3 (11:44→23:32)
[2018-09-10] MEDS: LINEZOLID PMX 600MG/300ML 300 ML IV SCH (11:44)
[2018-09-10] MEDS: methylPREDNISolone SOD SUCC 125 MG/2 ML IVPush SCH ×2 (11:48→20:18)
[2018-09-10] MEDS: ATORVASTATIN 40 MG TABLET PO SCH (20:18)
[2018-09-11] MEDS: LINEZOLID PMX 600MG/300ML 300 ML IV SCH ×3 (00:22→23:24)
[2018-09-11] MEDS: methylPREDNISolone SOD SUCC 125 MG/2 ML IVPush SCH ×3 (03:55→20:34)
[2018-09-11 04:31] LABS: ALBUMIN 2.6 g/dL (3.4-5.0); ANION GAP 1 mmol/L (5-15); CALCIUM 8.1 mg/dL (8.5-10.1); CHLORIDE 97 mmol/L (98-107)
[2018-09-11 04:34] LABS: BASOPHILS % (AUTO) 0 % (0-1); EOSINOPHILS # (AUTO) 0.15 x10^3/uL (0-0.4); EOSINOPHILS % (AUTO) 1 % (1-7); LYMPHOCYTES # (AUTO) 0.33 x10^3/uL (1-3.4); LYMPHOCYTES % (AUTO) 2 % (22-44); MD NO; MEAN CORPUSCULAR HEMOGLOBIN 32.9 pg (27.5-34.5); MEAN CORPUSCULAR HGB CONC 33.6 g/dL (33.2-36.2); MEAN CORPUSCULAR VOLUME 97.8 fL (81-97); MEAN PLATELET VOLUME 9.7 fL (7.4-10.4); MONOCYTES # (AUTO) 0.51 x10^3/uL (0.2-0.8); MONOCYTES % (AUTO) 4 % (2-9); NEUTROPHILS # (AUTO) 13.14 x10^3/uL (1.8-6.8); NEUTROPHILS % (AUTO) 93 % (42-75); PLATELET COUNT 164 x10^3/uL (130-400); RED BLOOD COUNT 3.63 x10^6/uL (4.38-5.82); RED CELL DISTRIBUTION WIDTH 12.7 % (9.4-14.8)
[2018-09-11 04:37] LABS: ALANINE AMINOTRANSFERASE 45 U/L (12-78); ALKALINE PHOSPHATASE 48 U/L (45-117); BILIRUBIN,TOTAL 0.7 mg/dL (0.2-1.0); CREATININE 0.95 mg/dL (0.7-1.3); TOTAL PROTEIN 5.5 g/dL (6.4-8.2)
[2018-09-11] MEDS: PIPERACILLIN/TAZO/PMX 3.375GM 50 ML IV SCH ×4 (05:24→22:48)
[2018-09-11] MEDS: PANTOPROZOLE 40MG TABLET PO SCH (05:25)
[2018-09-11] MEDS: HEPARIN 5,000 UNITS/ML, 1ML SQ SCH ×3 (05:25→20:35)
[2018-09-11] MEDS: ASPIRIN 325 MG TABLET PO SCH (05:25)
[2018-09-11] MEDS: INSULIN LISPRO 100 UNITS/ML, PEN SQ-INSULIN SCH ×4 (08:31→20:35)
[2018-09-11] MEDS: SENNA/DOCUSATE TABLET PO SCH (09:00)
[2018-09-11] MEDS: BUDESONIDE 0.5 MG/2 ML INHA NPPB SCH ×2 (09:30→19:54)
[2018-09-11] MEDS: FUROSEMIDE 40 MG/4 ML IV SCH (09:58)
[2018-09-11] MEDS: INSULIN GLARGINE 100 UNITS/ML, PEN SQ-INSULIN SCH ×2 (10:01→20:35)
[2018-09-11] MEDS ORDERED: NYSTATIN 500,000 UNITS/5 ML UDC PO SCH (16:30)
[2018-09-11 19:07] VITALS: BP 130/80
[2018-09-11] MEDS: ATORVASTATIN 40 MG TABLET PO SCH (20:34)
[2018-09-12 02:15] VITALS: BP 131/78
[2018-09-12 02:17] VITALS: BP 131/78
[2018-09-12] MEDS: methylPREDNISolone SOD SUCC 125 MG/2 ML IVPush SCH ×3 (05:24→21:28)
[2018-09-12] MEDS: HEPARIN 5,000 UNITS/ML, 1ML SQ SCH ×3 (05:25→21:28)
[2018-09-12] MEDS: PANTOPROZOLE 40MG TABLET PO SCH (05:25)
[2018-09-12] MEDS: ASPIRIN 325 MG TABLET PO SCH (05:25)
[2018-09-12] MEDS: PIPERACILLIN/TAZO/PMX 3.375GM 50 ML IV SCH ×4 (05:39→23:32)
[2018-09-12] MEDS: INSULIN LISPRO 100 UNITS/ML, PEN SQ-INSULIN SCH ×4 (07:00→21:28)
[2018-09-12 07:03] VITALS: BP 130/73
[2018-09-12 07:08] LABS: BASOPHILS # (AUTO) 0.01 x10^3/uL (0-0.1); BASOPHILS % (AUTO) 0 % (0-1); EOSINOPHILS # (AUTO) 0.29 x10^3/uL (0-0.4); EOSINOPHILS % (AUTO) 2 % (1-7); LYMPHOCYTES # (AUTO) 0.38 x10^3/uL (1-3.4); LYMPHOCYTES % (AUTO) 3 % (22-44); MD NO; MEAN CORPUSCULAR HEMOGLOBIN 32.9 pg (27.5-34.5); MEAN CORPUSCULAR HGB CONC 34.1 g/dL (33.2-36.2); MEAN CORPUSCULAR VOLUME 96.7 fL (81-97); MEAN PLATELET VOLUME 10.3 fL (7.4-10.4); MONOCYTES # (AUTO) 0.68 x10^3/uL (0.2-0.8); MONOCYTES % (AUTO) 5 % (2-9); NEUTROPHILS # (AUTO) 13.09 x10^3/uL (1.8-6.8); NEUTROPHILS % (AUTO) 91 % (42-75); PLATELET COUNT 173 x10^3/uL (130-400); RED BLOOD COUNT 3.39 x10^6/uL (4.38-5.82); RED CELL DISTRIBUTION WIDTH 12.5 % (9.4-14.8)
[2018-09-12 07:13] LABS: ANION GAP 3 mmol/L (5-15); CALCIUM 8.3 mg/dL (8.5-10.1); CHLORIDE 97 mmol/L (98-107); CREATININE 0.82 mg/dL (0.7-1.3)
[2018-09-12] MEDS: SENNA/DOCUSATE TABLET PO SCH (08:39)
[2018-09-12] MEDS: FUROSEMIDE 40 MG/4 ML IV SCH (08:39)
[2018-09-12] MEDS: INSULIN GLARGINE 100 UNITS/ML, PEN SQ-INSULIN SCH ×2 (08:39→21:29)
[2018-09-12] MEDS: BUDESONIDE 0.5 MG/2 ML INHA NPPB SCH ×2 (09:55→21:00)
[2018-09-12] MEDS: LINEZOLID PMX 600MG/300ML 300 ML IV SCH (11:56)
[2018-09-12 20:32] VITALS: BP 141/84
[2018-09-12] MEDS: ATORVASTATIN 40 MG TABLET PO SCH (21:28)
[2018-09-13 01:43] VITALS: BP 122/74
[2018-09-13] MEDS: methylPREDNISolone SOD SUCC 125 MG/2 ML IVPush SCH ×2 (04:43→12:10)
[2018-09-13 05:21] LABS: BASOPHILS % (AUTO) 0 % (0-1); EOSINOPHILS % (AUTO) 0 % (1-7); LYMPHOCYTES # (AUTO) 0.32 x10^3/uL (1-3.4); LYMPHOCYTES % (AUTO) 3 % (22-44); MD NO; MEAN CORPUSCULAR HEMOGLOBIN 32.3 pg (27.5-34.5); MEAN CORPUSCULAR HGB CONC 33.1 g/dL (33.2-36.2); MEAN CORPUSCULAR VOLUME 97.3 fL (81-97); MEAN PLATELET VOLUME 10.6 fL (7.4-10.4); MONOCYTES # (AUTO) 0.55 x10^3/uL (0.2-0.8); MONOCYTES % (AUTO) 5 % (2-9); NEUTROPHILS # (AUTO) 11.28 x10^3/uL (1.8-6.8); NEUTROPHILS % (AUTO) 93 % (42-75); PLATELET COUNT 193 x10^3/uL (130-400); RED BLOOD COUNT 3.73 x10^6/uL (4.38-5.82); RED CELL DISTRIBUTION WIDTH 13.3 % (9.4-14.8)
[2018-09-13 05:26] LABS: CHLORIDE 98 mmol/L (98-107)
[2018-09-13 05:34] LABS: ANION GAP 3 mmol/L (5-15); CALCIUM 8.6 mg/dL (8.5-10.1); CREATININE 0.91 mg/dL (0.7-1.3)
[2018-09-13] MEDS: HEPARIN 5,000 UNITS/ML, 1ML SQ SCH ×3 (05:36→20:29)
[2018-09-13] MEDS: PANTOPROZOLE 40MG TABLET PO SCH (05:37)
[2018-09-13] MEDS: PIPERACILLIN/TAZO/PMX 3.375GM 50 ML IV SCH (05:37)
[2018-09-13] MEDS: ASPIRIN 325 MG TABLET PO SCH (05:37)
[2018-09-13] MEDS: INSULIN LISPRO 100 UNITS/ML, PEN SQ-INSULIN SCH ×4 (07:00→20:28)
[2018-09-13] MEDS ORDERED: ALBUTEROL/IPRATROPIUM 2.5MG/0.5MG, 3 ML NPPB SCH (07:00)
[2018-09-13 08:17] VITALS: BP 119/79
[2018-09-13] MEDS: SENNA/DOCUSATE TABLET PO SCH (08:44)
[2018-09-13] MEDS: INSULIN GLARGINE 100 UNITS/ML, PEN SQ-INSULIN SCH ×2 (08:44→20:28)
[2018-09-13] MEDS: FUROSEMIDE 40 MG/4 ML IV SCH (08:45)
[2018-09-13] MEDS: BUDESONIDE 0.5 MG/2 ML INHA NPPB SCH ×2 (09:00→19:50)
[2018-09-13 13:48] VITALS: BP 122/83
[2018-09-13] MEDS ORDERED: OMNIPAQUE 350 MG/ML, 100ML BOTTLE ONE (14:29)
[2018-09-13] MEDS ORDERED: GADOBUTROL 7.5 MMOL/7.5 ML VIAL ONE (16:08)
[2018-09-13 19:17] VITALS: BP 121/70
[2018-09-13] MEDS: ATORVASTATIN 40 MG TABLET PO SCH (20:29)
[2018-09-14] VITALS (14 sets, daily range): BP systolic 117–161; BP diastolic 65–93
[2018-09-14] MEDS ORDERED: METOPROLOL TARTRATE 25 MG TABLET PO ONE (04:00)
[2018-09-14 05:32] LABS: BASOPHILS # (AUTO) 0.02 x10^3/uL (0-0.1); BASOPHILS % (AUTO) 0 % (0-1); EOSINOPHILS # (AUTO) 0.19 x10^3/uL (0-0.4); EOSINOPHILS % (AUTO) 1 % (1-7); LYMPHOCYTES # (AUTO) 1.07 x10^3/uL (1-3.4); LYMPHOCYTES % (AUTO) 8 % (22-44); MD NO; MEAN CORPUSCULAR HGB CONC 34.1 g/dL (33.2-36.2); MEAN CORPUSCULAR VOLUME 96.7 fL (81-97); MEAN PLATELET VOLUME 9.8 fL (7.4-10.4); MONOCYTES # (AUTO) 0.81 x10^3/uL (0.2-0.8); MONOCYTES % (AUTO) 6 % (2-9); NEUTROPHILS # (AUTO) 11.97 x10^3/uL (1.8-6.8); NEUTROPHILS % (AUTO) 85 % (42-75); PLATELET COUNT 207 x10^3/uL (130-400); RED BLOOD COUNT 3.88 x10^6/uL (4.38-5.82); RED CELL DISTRIBUTION WIDTH 12.8 % (9.4-14.8)
[2018-09-14 05:43] LABS: ANION GAP 2 mmol/L (5-15); CALCIUM 8.1 mg/dL (8.5-10.1); CHLORIDE 97 mmol/L (98-107); CREATININE 0.62 mg/dL (0.7-1.3)
[2018-09-14] MEDS: ASPIRIN 325 MG TABLET PO SCH (06:05)
[2018-09-14] MEDS: PANTOPROZOLE 40MG TABLET PO SCH (06:05)
[2018-09-14] MEDS: HEPARIN 5,000 UNITS/ML, 1ML SQ SCH ×3 (06:05→20:50)
[2018-09-14] MEDS: INSULIN LISPRO 100 UNITS/ML, PEN SQ-INSULIN SCH ×4 (07:00→20:50)
[2018-09-14] MEDS: SENNA/DOCUSATE TABLET PO SCH ×2 (08:23→08:42)
[2018-09-14] MEDS: INSULIN GLARGINE 100 UNITS/ML, PEN SQ-INSULIN SCH (08:37)
[2018-09-14] MEDS: BUDESONIDE 0.5 MG/2 ML INHA NPPB SCH ×2 (09:00→20:33)
[2018-09-14] MEDS ORDERED: FUROSEMIDE 40 MG TABLET PO SCH (09:00)
[2018-09-14] MEDS: ALBUTEROL/IPRATROPIUM 2.5MG/0.5MG, 3 ML NPPB SCH ×3 (09:00→20:33)
--- NOTE | 2018-09-14 16:05 | NUR ---
KYLER VARGAS - Fall Risk Medication(s) present (TRAMADOL, ALPRAZOLAM, AND LABETALOL) and receiving anticoagulants (HEPARIN). Signed: 09/14/18 at 1607 by Jocelyne COLLINS
[2018-09-14] MEDS: ATORVASTATIN 40 MG TABLET PO SCH (20:50)
[2018-09-14] MEDS ORDERED: CARVEDILOL 6.25 MG TABLET ONE (21:56)
[2018-09-14] MEDS: CARVEDILOL 6.25 MG TABLET PO SCH (21:58)
[2018-09-15 01:14] VITALS: BP 123/82
[2018-09-15] MEDS: ALBUTEROL/IPRATROPIUM 2.5MG/0.5MG, 3 ML NPPB SCH ×4 (03:00→20:14)
[2018-09-15 05:14] LABS: BASOPHILS # (AUTO) 0.01 x10^3/uL (0-0.1); BASOPHILS % (AUTO) 0 % (0-1); EOSINOPHILS # (AUTO) 0.28 x10^3/uL (0-0.4); EOSINOPHILS % (AUTO) 2 % (1-7); LYMPHOCYTES # (AUTO) 0.94 x10^3/uL (1-3.4); LYMPHOCYTES % (AUTO) 7 % (22-44); MD NO; MEAN CORPUSCULAR HGB CONC 33.9 g/dL (33.2-36.2); MEAN CORPUSCULAR VOLUME 97.2 fL (81-97); MEAN PLATELET VOLUME 10.2 fL (7.4-10.4); MONOCYTES # (AUTO) 0.61 x10^3/uL (0.2-0.8); MONOCYTES % (AUTO) 4 % (2-9); NEUTROPHILS # (AUTO) 12.12 x10^3/uL (1.8-6.8); NEUTROPHILS % (AUTO) 87 % (42-75); PLATELET COUNT 210 x10^3/uL (130-400); RED BLOOD COUNT 3.84 x10^6/uL (4.38-5.82); RED CELL DISTRIBUTION WIDTH 12.7 % (9.4-14.8)
[2018-09-15 05:26] LABS: CHLORIDE 99 mmol/L (98-107)
[2018-09-15 05:38] LABS: ANION GAP 4 mmol/L (5-15); CALCIUM 8.1 mg/dL (8.5-10.1)
[2018-09-15] MEDS: HEPARIN 5,000 UNITS/ML, 1ML SQ SCH ×3 (05:42→20:39)
[2018-09-15] MEDS: PANTOPROZOLE 40MG TABLET PO SCH (05:44)
[2018-09-15] MEDS: ASPIRIN 325 MG TABLET PO SCH (05:44)
[2018-09-15] MEDS: INSULIN LISPRO 100 UNITS/ML, PEN SQ-INSULIN SCH ×4 (07:00→20:40)
[2018-09-15] MEDS: BUDESONIDE 0.5 MG/2 ML INHA NPPB SCH ×2 (07:40→20:14)
[2018-09-15 07:47] VITALS: BP 146/88
[2018-09-15] MEDS ORDERED: CALCIUM GLUCONATE 9.2 MEQ in SODIUM CHLORIDE 0.9% 100 ML IV ONE (08:00)
[2018-09-15 08:02] VITALS: BP 122/75
[2018-09-15 08:35] LABS: THYROID STIMULATING HORMONE 2.05 mIU/L (0.358-3.740)
[2018-09-15] MEDS: SENNA/DOCUSATE TABLET PO SCH (09:00)
[2018-09-15] MEDS: CARVEDILOL 6.25 MG TABLET PO SCH ×2 (09:52→20:40)
[2018-09-15 13:05] VITALS: BP 109/70
[2018-09-15 19:52] VITALS: BP 120/76
[2018-09-15] MEDS: ATORVASTATIN 40 MG TABLET PO SCH (20:40)
[2018-09-15] MEDS ORDERED: CARVEDILOL 6.25 MG TABLET PO SCH (21:00)
[2018-09-16 02:03] VITALS: BP 127/83
[2018-09-16] MEDS: ALBUTEROL/IPRATROPIUM 2.5MG/0.5MG, 3 ML NPPB SCH ×4 (03:30→21:25)
[2018-09-16] MEDS: PANTOPROZOLE 40MG TABLET PO SCH (05:24)
[2018-09-16] MEDS: HEPARIN 5,000 UNITS/ML, 1ML SQ SCH ×3 (05:24→20:37)
[2018-09-16 05:54] LABS: BASOPHILS # (AUTO) 0.02 x10^3/uL (0-0.1); BASOPHILS % (AUTO) 0 % (0-1); EOSINOPHILS # (AUTO) 0.37 x10^3/uL (0-0.4); EOSINOPHILS % (AUTO) 3 % (1-7); LYMPHOCYTES # (AUTO) 0.94 x10^3/uL (1-3.4); LYMPHOCYTES % (AUTO) 7 % (22-44); MD NO; MEAN CORPUSCULAR HEMOGLOBIN 32.6 pg (27.5-34.5); MEAN CORPUSCULAR HGB CONC 33.5 g/dL (33.2-36.2); MEAN CORPUSCULAR VOLUME 97.2 fL (81-97); MEAN PLATELET VOLUME 10.2 fL (7.4-10.4); MONOCYTES # (AUTO) 0.58 x10^3/uL (0.2-0.8); MONOCYTES % (AUTO) 5 % (2-9); NEUTROPHILS # (AUTO) 10.74 x10^3/uL (1.8-6.8); NEUTROPHILS % (AUTO) 85 % (42-75); PLATELET COUNT 192 x10^3/uL (130-400); RED BLOOD COUNT 3.69 x10^6/uL (4.38-5.82); RED CELL DISTRIBUTION WIDTH 13.2 % (9.4-14.8)
[2018-09-16 06:01] LABS: ANION GAP 3 mmol/L (5-15); CALCIUM 8.2 mg/dL (8.5-10.1); CHLORIDE 99 mmol/L (98-107)
[2018-09-16 06:03] LABS: CREATININE 0.68 mg/dL (0.7-1.3)
[2018-09-16] MEDS: BUDESONIDE 0.5 MG/2 ML INHA NPPB SCH ×2 (07:40→21:25)
[2018-09-16 08:32] VITALS: BP 127/70
[2018-09-16] MEDS: SENNA/DOCUSATE TABLET PO SCH (09:00)
[2018-09-16] MEDS: LACTOBACILLUS CHEW TABLET PO SCH ×3 (09:02→20:37)
[2018-09-16] MEDS: ASPIRIN 81 MG TABLET EC PO SCH (09:02)
[2018-09-16] MEDS: CARVEDILOL 6.25 MG TABLET PO SCH ×2 (09:02→20:38)
[2018-09-16] MEDS: INSULIN LISPRO 100 UNITS/ML, PEN SQ-INSULIN SCH ×4 (09:02→20:49)
[2018-09-16 13:26] VITALS: BP 124/83
[2018-09-16 20:36] VITALS: BP 138/85
[2018-09-16] MEDS: ATORVASTATIN 40 MG TABLET PO SCH (20:37)
[2018-09-17 01:23] VITALS: BP 108/68
[2018-09-17] MEDS: ALBUTEROL/IPRATROPIUM 2.5MG/0.5MG, 3 ML NPPB SCH ×4 (03:05→21:00)
[2018-09-17] MEDS: ASPIRIN 81 MG TABLET EC PO SCH (05:07)
[2018-09-17] MEDS: HEPARIN 5,000 UNITS/ML, 1ML SQ SCH ×3 (05:07→21:16)
[2018-09-17] MEDS: PANTOPROZOLE 40MG TABLET PO SCH (05:07)
[2018-09-17 05:49] LABS: ANION GAP 3 mmol/L (5-15); CALCIUM 8.3 mg/dL (8.5-10.1); CHLORIDE 101 mmol/L (98-107); CREATININE 0.58 mg/dL (0.7-1.3)
[2018-09-17 05:52] LABS: BASOPHILS # (AUTO) 0.02 x10^3/uL (0-0.1); BASOPHILS % (AUTO) 0 % (0-1); EOSINOPHILS # (AUTO) 0.46 x10^3/uL (0-0.4); EOSINOPHILS % (AUTO) 3 % (1-7); LYMPHOCYTES # (AUTO) 0.76 x10^3/uL (1-3.4); LYMPHOCYTES % (AUTO) 6 % (22-44); MD NO; MEAN CORPUSCULAR HGB CONC 33.8 g/dL (33.2-36.2); MEAN CORPUSCULAR VOLUME 97.8 fL (81-97); MEAN PLATELET VOLUME 9.9 fL (7.4-10.4); MONOCYTES # (AUTO) 0.57 x10^3/uL (0.2-0.8); MONOCYTES % (AUTO) 4 % (2-9); NEUTROPHILS # (AUTO) 11.67 x10^3/uL (1.8-6.8); NEUTROPHILS % (AUTO) 87 % (42-75); PLATELET COUNT 220 x10^3/uL (130-400); RED BLOOD COUNT 3.69 x10^6/uL (4.38-5.82)
[2018-09-17 07:09] LABS: HEMOGLOBIN A1C 5.8 % (4.2-6.3)
[2018-09-17] MEDS: INSULIN LISPRO 100 UNITS/ML, PEN SQ-INSULIN SCH ×4 (07:15→21:17)
[2018-09-17] MEDS: BUDESONIDE 0.5 MG/2 ML INHA NPPB SCH ×2 (07:45→21:00)
[2018-09-17 08:17] VITALS: BP 149/79
[2018-09-17] MEDS: LACTOBACILLUS CHEW TABLET PO SCH ×3 (08:19→21:16)
[2018-09-17] MEDS: SENNA/DOCUSATE TABLET PO SCH (08:20)
[2018-09-17] MEDS: CARVEDILOL 6.25 MG TABLET PO SCH ×2 (08:20→21:16)
[2018-09-17] MEDS ORDERED: ACID1TAB7 PO (12:18)
[2018-09-17] MEDS ORDERED: CARV6.2512 PO (12:18)
[2018-09-17] MEDS ORDERED: ATOR40TA78 PO (12:18)
[2018-09-17] MEDS ORDERED: LISI5TAB7 PO (12:18)
[2018-09-17] MEDS ORDERED: SPIR25TA PO (12:18)
[2018-09-17 14:01] VITALS: BP 142/76
[2018-09-17 19:27] VITALS: BP 128/81
[2018-09-17] MEDS: ATORVASTATIN 40 MG TABLET PO SCH (21:16)
[2018-09-18 00:53] VITALS: BP 149/92
[2018-09-18] MEDS: ALBUTEROL/IPRATROPIUM 2.5MG/0.5MG, 3 ML NPPB SCH ×5 (03:00→14:28)
[2018-09-18] MEDS: PANTOPROZOLE 40MG TABLET PO SCH (05:34)
[2018-09-18] MEDS: HEPARIN 5,000 UNITS/ML, 1ML SQ SCH (05:34)
[2018-09-18 06:43] LABS: BASOPHILS # (AUTO) 0.04 x10^3/uL (0-0.1); BASOPHILS % (AUTO) 0 % (0-1); EOSINOPHILS # (AUTO) 0.35 x10^3/uL (0-0.4); EOSINOPHILS % (AUTO) 3 % (1-7); LYMPHOCYTES # (AUTO) 0.81 x10^3/uL (1-3.4); LYMPHOCYTES % (AUTO) 8 % (22-44); MD NO; MEAN CORPUSCULAR HEMOGLOBIN 33.1 pg (27.5-34.5); MEAN CORPUSCULAR HGB CONC 34.1 g/dL (33.2-36.2); MEAN CORPUSCULAR VOLUME 97.2 fL (81-97); MEAN PLATELET VOLUME 9.2 fL (7.4-10.4); MONOCYTES # (AUTO) 0.64 x10^3/uL (0.2-0.8); MONOCYTES % (AUTO) 6 % (2-9); NEUTROPHILS # (AUTO) 8.83 x10^3/uL (1.8-6.8); NEUTROPHILS % (AUTO) 83 % (42-75); PLATELET COUNT 193 x10^3/uL (130-400); RED BLOOD COUNT 3.41 x10^6/uL (4.38-5.82); RED CELL DISTRIBUTION WIDTH 13.3 % (9.4-14.8)
[2018-09-18 06:44] LABS: CHLORIDE 104 mmol/L (98-107)
[2018-09-18 06:57] LABS: ANION GAP 4 mmol/L (5-15); CALCIUM 8.2 mg/dL (8.5-10.1); CREATININE 0.58 mg/dL (0.7-1.3)
[2018-09-18 07:01] VITALS: BP 129/73
[2018-09-18] MEDS: INSULIN LISPRO 100 UNITS/ML, PEN SQ-INSULIN SCH ×2 (08:09→11:28)
[2018-09-18] MEDS: LACTOBACILLUS CHEW TABLET PO SCH (08:29)
[2018-09-18] MEDS: SENNA/DOCUSATE TABLET PO SCH (08:30)
[2018-09-18] MEDS: CARVEDILOL 6.25 MG TABLET PO SCH (08:30)
[2018-09-18] MEDS: BUDESONIDE 0.5 MG/2 ML INHA NPPB SCH (09:00)
[2018-09-18] MEDS ORDERED: SPIRONOLACTONE 25 MG TABLET PO SCH (09:00)
[2018-09-18] MEDS ORDERED: LISINOPRIL 5 MG TABLET PO SCH (09:00)
== END 2018-09-18 12:30 | DRG 207 ==
LOC: ED 15:00 → EDIP 15:13 → 5SO 08-27 14:15 → CCU 08-27 19:58 → 3NE 09-07 14:04 → CCU 09-10 10:22 → 4EST 09-11 18:39
PROVIDERS: ADMIT Internal Medicine; ATTEND Internal Medicine
PROC: 5A1955Z Respiratory Ventilation, Greater than 96 Consecutive Hours (ICD-10-PCS; principal; 2018-08-27)
PROC: 0BH18EZ Insertion of Endotracheal Airway into Trachea, Via Natural or Artificial Opening Endoscopic (ICD-10-PCS; 2018-08-27)
PROC: 0T9B70Z Drainage of Bladder with Drainage Device, Via Natural or Artificial Opening (ICD-10-PCS; 2018-08-27)
PROC: 5A1955Z Respiratory Ventilation, Greater than 96 Consecutive Hours (ICD-10-PCS; 2018-09-01)
PROC: 0BH18EZ Insertion of Endotracheal Airway into Trachea, Via Natural or Artificial Opening Endoscopic (ICD-10-PCS; 2018-09-01)
PROC: 5A09357 Assistance with Respiratory Ventilation, Less than 24 Consecutive Hours, Continuous Positive Airway Pressure (ICD-10-PCS; 2018-09-01)
PROC: 5A09357 Assistance with Respiratory Ventilation, Less than 24 Consecutive Hours, Continuous Positive Airway Pressure (ICD-10-PCS; 2018-09-05)
DX: J96.21 Acute and chronic respiratory failure with hypoxia (principal); I21.4 Non-ST elevation (NSTEMI) myocardial infarction; J15.5 Pneumonia due to Escherichia coli; G93.41 Metabolic encephalopathy; I50.43 Acute on chronic combined systolic (congestive) and diastolic (congestive) heart failure; J69.0 Pneumonitis due to inhalation of food and vomit; R65.11 Systemic inflammatory response syndrome (SIRS) of non-infectious origin with acute organ dysfunction; E87.2 Acidosis; D68.69 Other thrombophilia; I47.2 Ventricular tachycardia; I48.1 Persistent atrial fibrillation; Z99.11 Dependence on respirator [ventilator] status; J96.22 Acute and chronic respiratory failure with hypercapnia; E83.51 Hypocalcemia; E86.0 Dehydration; F41.9 Anxiety disorder, unspecified; G89.4 Chronic pain syndrome; I08.0 Rheumatic disorders of both mitral and aortic valves; I11.0 Hypertensive heart disease with heart failure; I44.7 Left bundle-branch block, unspecified; I70.0 Atherosclerosis of aorta; I73.9 Peripheral vascular disease, unspecified; J43.9 Emphysema, unspecified; T38.0X5A Adverse effect of glucocorticoids and synthetic analogues, initial encounter; Z79.52 Long term (current) use of systemic steroids; Z82.49 Family history of ischemic heart disease and other diseases of the circulatory system; Z99.81 Dependence on supplemental oxygen
CPT/HCPCS: 0399T; 36415; 36600; 70450; 70553; 71045; 71046; 71250; 74177; 74230; 80048; 80053; 80061; 80307; 81001; 82803; 82805; 82962; 83036; 83605; 83735; 83880; 84100; 84145; 84443; 84478; 84484; 85025; 85520; 85610; 87040; 87070; 87077; 87081; 87086; 87186; 87205; 93005; 93306; 93308; 93321; 93325; 93970; 94002; 94003; 94640; 94660; 96365; 96366; 96375; 99291; A9585; G0378; J0295; J0610; J0696; J1644; J1650; J1940; J2020; J2185; J2250; J2543; J2704; J3010; J7060; J7620; J7626; J7644; Q9967; C9113; J0330; J1120; J1815; J2060; J2765; J2920; J2930; J3475; J7030; J7050; J7120; J7512

== ENCOUNTER → 2018-09-23 | Outpatient (CLI) | payer MEDICARE ==
[~2018-09-23] MED LIST changes: +ACID1TAB7 PO; +ATOR40TA78 PO; +CARV6.2512 PO; +FLUT1AER INH; +LISI5TAB7 PO; +SPIR25TA PO
== END | disposition home or self-care (01) ==
LOC: PETCFH 09:32
PROVIDERS: ATTEND Internal Medicine
DX: J43.9 Emphysema, unspecified (principal); R91.1 Solitary pulmonary nodule; J34.89 Other specified disorders of nose and nasal sinuses; K57.30 Diverticulosis of large intestine without perforation or abscess without bleeding
CPT/HCPCS: 78815; A9552

== ENCOUNTER 2018-09-25 07:44 | Outpatient (CLI) | payer MEDICARE ==
[~2018-09-25 07:44] MED LIST changes: -FLUT1AER INH
[2018-09-25] MEDS ORDERED: FLUT1AER INH (12:58)
== END 2018-09-25 09:29 | disposition home or self-care (01) ==
LOC: OUT 07:44 → CLISVCS 07:44 → OUT 09:29 → CLISVCS 09:29 → EDSTATUS 09:30
PROVIDERS: ATTEND Internal Medicine
DX: J18.9 Pneumonia, unspecified organism (principal)
CPT/HCPCS: 71045

== ENCOUNTER 2018-09-25 09:37 | Inpatient (IN) | payer MEDICARE ==
[~2018-09-25] VITALS: Ht 175.3 cm; Wt 81.2 kg
[2018-09-25] MEDS ORDERED: SODIUM CHLORIDE FLUSH 10ML SYR IVF ONE (10:00)
[2018-09-25] MEDS: PLEASE ENTER HEIGHT AND WEIGHT MC SCH ×2 (10:16→16:39)
[2018-09-25 10:32] LABS: BASOPHILS % (AUTO) 0 % (0-1); EOSINOPHILS # (AUTO) 0.01 x10^3/uL (0-0.4); EOSINOPHILS % (AUTO) 0 % (1-7); LYMPHOCYTES # (AUTO) 0.39 x10^3/uL (1-3.4); LYMPHOCYTES % (AUTO) 4 % (22-44); MD NO; MEAN CORPUSCULAR HEMOGLOBIN 31.8 pg (27.5-34.5); MEAN CORPUSCULAR HGB CONC 33.4 g/dL (33.2-36.2); MEAN CORPUSCULAR VOLUME 95.4 fL (81-97); MEAN PLATELET VOLUME 8.9 fL (7.4-10.4); MONOCYTES # (AUTO) 0.77 x10^3/uL (0.2-0.8); MONOCYTES % (AUTO) 8 % (2-9); NEUTROPHILS # (AUTO) 8.61 x10^3/uL (1.8-6.8); NEUTROPHILS % (AUTO) 88 % (42-75); PLATELET COUNT 252 x10^3/uL (130-400); RED BLOOD COUNT 3.87 x10^6/uL (4.38-5.82); RED CELL DISTRIBUTION WIDTH 13.1 % (9.4-14.8)
[2018-09-25 10:43] LABS: ANION GAP 8 mmol/L (5-15); CALCIUM 9.2 mg/dL (8.5-10.1); CHLORIDE 96 mmol/L (98-107); CREATININE 0.88 mg/dL (0.7-1.3)
[2018-09-25] MEDS ORDERED: SODIUM CHLORIDE 0.9% 1,000ML IVBOLUS ONE (11:00)
[2018-09-25] MEDS ORDERED: OMNIPAQUE 350 MG/ML, 100ML BOTTLE ONE (11:58)
[2018-09-25] MEDS ORDERED: CEFTRIAXONE PMX 1GM/50ML 50 ML ONE (12:22)
--- NOTE | 2018-09-25 12:25 | NUR ---
IV ROCEPHIN STARTED.
[2018-09-25] MEDS ORDERED: SODIUM CHLORIDE FLUSH 10ML SYR IVF PRN (12:30)
[2018-09-25] MEDS ORDERED: AZITHROMYCIN 500 MG in SODIUM CHLORIDE 0.9% 250 ML IVPB ONE (12:30)
[2018-09-25] MEDS ORDERED: CEFTRIAXONE PMX 1GM/50ML 50 ML IVPB ONE (12:30)
[2018-09-25] MEDS ORDERED: FLUT1AER INH (12:58)
--- NOTE | 2018-09-25 13:00 | NUR ---
LUNCH TRAY SERVED TO PATIENT.
--- NOTE | 2018-09-25 13:00 | NUR ---
SBAR TELEPHONE HAND-OFF REPORT GIVEN TO LOLA COFFEY.
--- NOTE | 2018-09-25 13:24 | NUR ---
[facility] REPORT GIVEN TO LOLA BAIN AND LOLA GALVIN. PATIENT CONCERNED THAT WE LOST HIS CELL PHONE. CONFIRMED WITH LOLA CAPPS THAT PATIENT'S CELL PHONE IS INDEED AT [facility] IN HIS ROOM.
[2018-09-25 16:51] VITALS: BP 96/65
[2018-09-25] MEDS ORDERED: ALBUTEROL SULFATE 2.5 MG/3 ML NEB PRN (17:00)
[2018-09-25] MEDS ORDERED: ONDANSETRON ODT 4 MG PO PRN (17:30)
[2018-09-25] MEDS ORDERED: BISACODYL 10 MG SUPP PR PRN (17:30)
[2018-09-25] MEDS ORDERED: VANCOMYCIN PER PHARMACY MC PRN (17:30)
[2018-09-25] MEDS ORDERED: ACETAMINOPHEN 325 MG TABLET PO PRN (17:30)
[2018-09-25] MEDS ORDERED: VANCOMYCIN PMX 1GM/200ML 200 ML IV ONE (17:30)
[2018-09-25] MEDS ORDERED: DOCUSATE 100 MG CAPSULE PO PRN (17:30)
[2018-09-25] MEDS ORDERED: ALBUTEROL SULFATE 2.5MG/0.5ML NPPB SCH (17:30)
[2018-09-25] MEDS ORDERED: PROMETHAZINE 25 MG/ML, 1ML IM PRN (17:30)
[2018-09-25] MEDS ORDERED: PHARMACOKINETIC MONITORING MC PRN (17:30)
[2018-09-25] MEDS ORDERED: hydrALAzine 20 MG/ML, 1ML IVPush PRN (17:30)
[2018-09-25] MEDS ORDERED: morphine SULFATE 10 MG/ML, 1ML IVPush PRN (17:30)
[2018-09-25] MEDS ORDERED: POLYETHYLENE GLYCOL 17 GM PACKET PO PRN (17:30)
[2018-09-25] MEDS ORDERED: ONDANSETRON 2MG/ML, 2ML IVPush PRN (17:30)
[2018-09-25] MEDS ORDERED: LABETALOL 5 MG/ML SYRINGE IVPush PRN (17:30)
[2018-09-25 17:55] LABS: FREE T4 (FREE THYROXINE) 1.07 ng/dL (0.76-1.46); THYROID STIMULATING HORMONE 1.78 mIU/L (0.358-3.740)
[2018-09-25] MEDS: GUAIFENESIN 200 MG TABLET PO SCH (17:56)
[2018-09-25] MEDS: LACTOBACILLUS CHEW TABLET PO SCH ×2 (17:56→21:20)
[2018-09-25] MEDS: HEPARIN 5,000 UNITS/ML, 1ML SQ SCH (17:57)
[2018-09-25] MEDS: SODIUM CHLORIDE 0.9% 1,000 ML IV SCH (17:57)
[2018-09-25 17:58] LABS: HEMOGLOBIN A1C 5.9 % (4.2-6.3)
[2018-09-25] MEDS: PIPERACILLIN/TAZO/PMX 3.375GM 50 ML IV SCH ×2 (18:17→23:11)
[2018-09-25 19:16] VITALS: BP 96/65
[2018-09-25] MEDS: BUDESONIDE 0.5 MG/2 ML INHA INH SCH (19:41)
[2018-09-25] MEDS: ALBUTEROL/IPRATROPIUM 2.5MG/0.5MG, 3 ML NPPB SCH (19:41)
[2018-09-25] MEDS ORDERED: LACTOBACILLUS CHEW TABLET PO SCH (21:00)
[2018-09-25] MEDS ORDERED: TEMPLATE NON-FORMULARY MED. (Budesonide/Formoterol Fumarate (Symbicort 160-4.5 Mcg Inhaler INH SCH (21:00)
[2018-09-25] MEDS: ATORVASTATIN 40 MG TABLET PO SCH (21:20)
[2018-09-25] MEDS: VANCOMYCIN 1,500 MG in SODIUM CHLORIDE 0.9% 250 ML IV SCH (21:21)
[2018-09-26 00:25] LABS: MICROSCOPIC NOT IND
[2018-09-26 00:32] LABS: CULTURE INDICATED? NO
[2018-09-26 01:05] VITALS: BP 95/59
[2018-09-26] MEDS: HEPARIN 5,000 UNITS/ML, 1ML SQ SCH ×3 (01:30→17:35)
[2018-09-26] MEDS: ALBUTEROL/IPRATROPIUM 2.5MG/0.5MG, 3 ML NPPB SCH ×4 (03:30→20:05)
[2018-09-26] MEDS: SODIUM CHLORIDE 0.9% 1,000 ML IV SCH (05:15)
[2018-09-26] MEDS: GUAIFENESIN 200 MG TABLET PO SCH ×2 (05:15→16:32)
[2018-09-26] MEDS: PIPERACILLIN/TAZO/PMX 3.375GM 50 ML IV SCH ×4 (05:15→23:08)
[2018-09-26 06:23] LABS: ANION GAP 5 mmol/L (5-15); CALCIUM 8.3 mg/dL (8.5-10.1); CHLORIDE 103 mmol/L (98-107)
[2018-09-26 06:26] LABS: ALANINE AMINOTRANSFERASE 27 U/L (12-78); ALKALINE PHOSPHATASE 55 U/L (45-117); BILIRUBIN,TOTAL 0.7 mg/dL (0.2-1.0); CHOL/HDL RATIO 2.7; CHOLESTEROL, TOTAL 89 mg/dL (140-239); CREATININE 0.66 mg/dL (0.7-1.3); HDL CHOL % 37 % (26-37); HDL CHOLESTEROL (DIRECT) 33 mg/dL (40-60); LDL CHOLESTEROL,CALCULATED 42 mg/dL (54-169); LDL/HDL RATIO 1.3 (0.5-3.0); TOTAL PROTEIN 5.4 g/dL (6.4-8.2); TRIGLYCERIDES 71 mg/dL (50-200); VLDL CHOLESTEROL 14 mg/dL (0-25)
[2018-09-26 06:29] VITALS: BP 102/65
[2018-09-26 06:47] LABS: BASOPHILS # (AUTO) 0.01 x10^3/uL (0-0.1); BASOPHILS % (AUTO) 0 % (0-1); EOSINOPHILS # (AUTO) 0.17 x10^3/uL (0-0.4); EOSINOPHILS % (AUTO) 3 % (1-7); LYMPHOCYTES # (AUTO) 0.38 x10^3/uL (1-3.4); LYMPHOCYTES % (AUTO) 6 % (22-44); MD NO; MEAN CORPUSCULAR HEMOGLOBIN 31.8 pg (27.5-34.5); MEAN CORPUSCULAR HGB CONC 33.2 g/dL (33.2-36.2); MEAN CORPUSCULAR VOLUME 95.8 fL (81-97); MEAN PLATELET VOLUME 8.9 fL (7.4-10.4); MONOCYTES % (AUTO) 12 % (2-9); NEUTROPHILS # (AUTO) 4.65 x10^3/uL (1.8-6.8); NEUTROPHILS % (AUTO) 79 % (42-75); PLATELET COUNT 202 x10^3/uL (130-400); RED BLOOD COUNT 2.69 x10^6/uL (4.38-5.82); RED CELL DISTRIBUTION WIDTH 13.1 % (9.4-14.8)
[2018-09-26] MEDS: BUDESONIDE 0.5 MG/2 ML INHA INH SCH ×2 (07:39→20:05)
[2018-09-26] MEDS ORDERED: IPRATROPIUM 0.5 MG/2.5 ML INHA NPPB SCH (09:00)
[2018-09-26] MEDS ORDERED: FLUTICASONE/VILANTEROL 100-25MCG/INH INH SCH (09:00)
[2018-09-26] MEDS: LACTOBACILLUS CHEW TABLET PO SCH ×3 (09:38→20:03)
[2018-09-26] MEDS: methylPREDNISolone SOD SUCC 125 MG/2 ML IVPush SCH ×3 (11:28→21:40)
[2018-09-26 12:18] VITALS: BP 111/71
[2018-09-26] MEDS: VANCOMYCIN 1,500 MG in SODIUM CHLORIDE 0.9% 250 ML IV SCH (17:35)
[2018-09-26] MEDS: ATORVASTATIN 40 MG TABLET PO SCH (20:02)
[2018-09-26 21:24] VITALS: BP 115/70
[2018-09-27 00:26] VITALS: BP 124/73
[2018-09-27] MEDS: HEPARIN 5,000 UNITS/ML, 1ML SQ SCH ×4 (01:30→23:26)
[2018-09-27] MEDS: ALBUTEROL/IPRATROPIUM 2.5MG/0.5MG, 3 ML NPPB SCH ×4 (02:48→19:44)
[2018-09-27] MEDS: methylPREDNISolone SOD SUCC 125 MG/2 ML IVPush SCH ×4 (04:29→22:05)
[2018-09-27] MEDS: PIPERACILLIN/TAZO/PMX 3.375GM 50 ML IV SCH ×4 (05:25→23:26)
[2018-09-27] MEDS: GUAIFENESIN 200 MG TABLET PO SCH ×2 (05:25→17:11)
[2018-09-27] MEDS: BUDESONIDE 0.5 MG/2 ML INHA INH SCH ×2 (06:40→19:44)
[2018-09-27 06:51] VITALS: BP 138/60
[2018-09-27] MEDS: LACTOBACILLUS CHEW TABLET PO SCH ×3 (09:23→19:56)
[2018-09-27] MEDS: HYDROcodone/APAP 5/325 TABLET PO PRN ×2 (11:22→17:04)
[2018-09-27] MEDS: VANCOMYCIN 1,500 MG in SODIUM CHLORIDE 0.9% 250 ML IV SCH (12:40)
[2018-09-27 12:50] VITALS: BP 143/68
[2018-09-27 19:33] VITALS: BP 149/79
[2018-09-27] MEDS: ATORVASTATIN 40 MG TABLET PO SCH (19:56)
[2018-09-28 01:15] VITALS: BP 136/73
[2018-09-28] MEDS: ALBUTEROL/IPRATROPIUM 2.5MG/0.5MG, 3 ML NPPB SCH ×4 (02:15→19:45)
[2018-09-28] MEDS: methylPREDNISolone SOD SUCC 125 MG/2 ML IVPush SCH ×4 (03:58→23:29)
[2018-09-28] MEDS: PIPERACILLIN/TAZO/PMX 3.375GM 50 ML IV SCH ×4 (05:47→23:32)
[2018-09-28] MEDS: GUAIFENESIN 200 MG TABLET PO SCH ×2 (05:47→17:51)
[2018-09-28] MEDS: VANCOMYCIN 1,500 MG in SODIUM CHLORIDE 0.9% 250 ML IV SCH (06:34)
[2018-09-28 07:09] VITALS: BP 151/80
[2018-09-28] MEDS: LACTOBACILLUS CHEW TABLET PO SCH ×3 (09:00→20:43)
[2018-09-28] MEDS: BUDESONIDE 0.5 MG/2 ML INHA INH SCH ×2 (09:35→19:45)
[2018-09-28] MEDS: HEPARIN 5,000 UNITS/ML, 1ML SQ SCH ×2 (09:53→17:52)
[2018-09-28] MEDS: HYDROcodone/APAP 5/325 TABLET PO PRN ×3 (10:10→20:54)
[2018-09-28 13:01] VITALS: BP 157/71
[2018-09-28 18:37] VITALS: BP 149/76
[2018-09-28 20:40] VITALS: BP 148/76
[2018-09-28] MEDS: ATORVASTATIN 40 MG TABLET PO SCH (20:44)
[2018-09-29] MEDS: VANCOMYCIN 1,500 MG in SODIUM CHLORIDE 0.9% 250 ML IV SCH ×2 (00:27→18:34)
[2018-09-29 00:49] VITALS: BP 137/72
[2018-09-29] MEDS: HEPARIN 5,000 UNITS/ML, 1ML SQ SCH ×3 (01:30→17:30)
[2018-09-29] MEDS: ALBUTEROL/IPRATROPIUM 2.5MG/0.5MG, 3 ML NPPB SCH ×4 (03:00→20:25)
[2018-09-29] MEDS: GUAIFENESIN 200 MG TABLET PO SCH ×2 (05:00→17:41)
[2018-09-29] MEDS: methylPREDNISolone SOD SUCC 125 MG/2 ML IVPush SCH ×4 (05:13→19:38)
[2018-09-29] MEDS: PIPERACILLIN/TAZO/PMX 3.375GM 50 ML IV SCH ×4 (05:14→21:40)
[2018-09-29 06:52] VITALS: BP 133/64
[2018-09-29] MEDS: BUDESONIDE 0.5 MG/2 ML INHA INH SCH ×2 (07:09→20:25)
[2018-09-29] MEDS: LACTOBACILLUS CHEW TABLET PO SCH ×3 (08:32→21:41)
[2018-09-29] MEDS ORDERED: NALOXONE 1 MG/ML, 2ML ONE (09:25)
[2018-09-29] MEDS ORDERED: FLUMAZENIL 0.1 MG/1 ML, 5ML ONE (09:25)
[2018-09-29] MEDS ORDERED: FENTANYL PF 100 MCG/2ML ONE (09:25)
[2018-09-29] MEDS ORDERED: MIDAZOLAM 1 MG/ML, 5ML ONE (09:25)
[2018-09-29 13:23] VITALS: BP 136/73
[2018-09-29 18:45] VITALS: BP 148/83
[2018-09-29] MEDS: HYDROcodone/APAP 5/325 TABLET PO PRN ×2 (19:35→21:41)
[2018-09-29] MEDS: ATORVASTATIN 40 MG TABLET PO SCH (21:40)
[2018-09-30] MEDS: HYDROcodone/APAP 5/325 TABLET PO PRN ×5 (00:04→20:18)
[2018-09-30 00:49] VITALS: BP_SYST 145; BP_SYST 148; BP_DIAS 83; BP_DIAS 85
[2018-09-30] MEDS: ALBUTEROL/IPRATROPIUM 2.5MG/0.5MG, 3 ML NPPB SCH ×3 (03:00→14:34)
[2018-09-30] MEDS: methylPREDNISolone SOD SUCC 125 MG/2 ML IVPush SCH ×6 (03:32→19:56)
[2018-09-30] MEDS: PIPERACILLIN/TAZO/PMX 3.375GM 50 ML IV SCH ×6 (03:33→19:55)
[2018-09-30] MEDS: HEPARIN 5,000 UNITS/ML, 1ML SQ SCH ×4 (03:34→19:56)
[2018-09-30] MEDS: GUAIFENESIN 200 MG TABLET PO SCH ×3 (05:20→19:56)
[2018-09-30 06:51] VITALS: BP 144/80
[2018-09-30] MEDS: BUDESONIDE 0.5 MG/2 ML INHA INH SCH (09:00)
[2018-09-30] MEDS: LACTOBACILLUS CHEW TABLET PO SCH ×3 (09:20→20:19)
[2018-09-30] MEDS: VANCOMYCIN 1,500 MG in SODIUM CHLORIDE 0.9% 250 ML IV SCH ×2 (12:58→19:55)
[2018-09-30 13:36] VITALS: BP 174/89
[2018-09-30] MEDS ORDERED: DOXY100T10 PO (13:50)
[2018-09-30] MEDS ORDERED: AMOX1TAB64 PO (13:50)
[2018-09-30] MEDS ORDERED: PRED5TAB PO (13:50)
[2018-09-30 19:43] VITALS: BP 154/86
[2018-09-30] MEDS: ATORVASTATIN 40 MG TABLET PO SCH (20:18)
[2018-10-01 01:02] VITALS: BP 145/66
[2018-10-01] MEDS ORDERED: ALBUTEROL/IPRATROPIUM 2.5MG/0.5MG, 3 ML ONE (04:44)
[2018-10-01] MEDS: HYDROcodone/APAP 5/325 TABLET PO PRN (05:27)
[2018-10-01 06:45] VITALS: BP 134/79
[2018-10-01 07:05] VITALS: BP 130/61
[2018-10-01] MEDS: methylPREDNISolone SOD SUCC 125 MG/2 ML IVPush SCH (09:00)
[2018-10-01] MEDS: PIPERACILLIN/TAZO/PMX 3.375GM 50 ML IV SCH (09:00)
[2018-10-01] MEDS: LACTOBACILLUS CHEW TABLET PO SCH (10:22)
== END 2018-10-01 11:23 | disposition home or self-care (01) | DRG 193 ==
LOC: ED 10:33 → EDIP 12:28 → 3NE 14:00
PROVIDERS: ADMIT Internal Medicine; ATTEND Internal Medicine
PROC: 0BBG3ZX Excision of Left Upper Lung Lobe, Percutaneous Approach, Diagnostic (ICD-10-PCS; principal; 2018-09-29)
DX: J15.9 Unspecified bacterial pneumonia (principal); J96.21 Acute and chronic respiratory failure with hypoxia; E44.0 Moderate protein-calorie malnutrition; E87.1 Hypo-osmolality and hyponatremia; I50.22 Chronic systolic (congestive) heart failure; I11.0 Hypertensive heart disease with heart failure; J43.9 Emphysema, unspecified; D64.9 Anemia, unspecified; I44.7 Left bundle-branch block, unspecified; Z68.26 Body mass index [BMI] 26.0-26.9, adult; Z82.49 Family history of ischemic heart disease and other diseases of the circulatory system; Z85.118 Personal history of other malignant neoplasm of bronchus and lung; Z87.891 Personal history of nicotine dependence; Z99.81 Dependence on supplemental oxygen
CPT/HCPCS: 32405; 36415; 71045; 71275; 77012; 80048; 80053; 80061; 80202; 81003; 82040; 83036; 83605; 83735; 84100; 84145; 84439; 84443; 85025; 87040; 88305; 93005; 94640; 96361; 96365; 99156; 99157; 99285; C2613; G0378; J0456; J0696; J1644; J2250; J2543; J3010; J3370; J7620; J7626; Q0162; Q9967; J2310; J2930; J7030; J7050

== ENCOUNTER 2018-11-04 11:26 | Outpatient (CLI) | payer MEDICARE ==
[~2018-11-04 11:26] MED LIST changes: +AMOX1TAB64 PO; +DOXY100T10 PO; +FLUT1AER INH; +PRED5TAB PO
[2018-11-09] MEDS ORDERED: ASPI81TA45 PO (19:05)
[2018-11-11] MEDS ORDERED: GUAI600T31 PO (10:14)
[2018-11-11] MEDS ORDERED: PRED20TA PO ×2 (10:14)
[2018-11-11] MEDS ORDERED: AZIT500T5 PO ×2 (10:14)
== END 2018-11-04 23:59 | disposition home or self-care (01) ==
LOC: RAD 11:26
PROVIDERS: ATTEND Internal Medicine Critical Care Medicine
DX: J43.9 Emphysema, unspecified (principal); M81.0 Age-related osteoporosis without current pathological fracture; M19.90 Unspecified osteoarthritis, unspecified site
CPT/HCPCS: 71250; 94060; 94618; 94726; 94729

== ENCOUNTER 2018-11-11 11:44 | Inpatient (IN) | payer MEDICARE, OTHER ==
[~2018-11-11] VITALS: Ht 175.3 cm; Wt 82.0 kg
[~2018-11-11 11:44] MED LIST changes: +ASPI81TA45 PO; +GUAI600T31 PO
[2018-11-11] MEDS ORDERED: methylPREDNISolone SOD SUCC 125 MG/2 ML IVP ONE (12:00)
[2018-11-11] MEDS ORDERED: SODIUM CHLORIDE FLUSH 10ML SYR IVF ONE (12:00)
[2018-11-11] MEDS ORDERED: SODIUM CHLORIDE 0.9% 1,000ML IVBOLUS ONE ×2 (12:00→13:30)
--- NOTE | 2018-11-11 12:10 | NUR ---
PT LEFT HOSPITAL TODAY AND HAD TO TURN BACK AROUND BECAUSE HE HAD TROUBLE BREATHING. PT SITTING ON THE EDGE OF THE GURNEY, SLIGHT TRIPODING, LABORED BREATHING. ABLE TO SPEAK SHORT SENTENCES. RT AT BEDSIDE.
--- NOTE | 2018-11-11 12:14 | NUR ---
TWO LARGE BORE PIVS PLACED, PT BEING PLACED ON BI-PAP AT THIS TIME. MD DO AWARE.
[2018-11-11 12:25] LABS: MEAN CORPUSCULAR HEMOGLOBIN 30.5 pg (27.5-34.5); MEAN CORPUSCULAR HGB CONC 31.8 g/dL (33.2-36.2); MEAN CORPUSCULAR VOLUME 95.8 fL (81-97); MEAN PLATELET VOLUME 9.2 fL (7.4-10.4); PLATELET COUNT 336 x10^3/uL (130-400); RED BLOOD COUNT 4.21 x10^6/uL (4.38-5.82); RED CELL DISTRIBUTION WIDTH 15.2 % (9.4-14.8)
[2018-11-11] MEDS ORDERED: ALBUTEROL/IPRATROPIUM 2.5MG/0.5MG, 3 ML ONE ×3 (12:25→16:00)
[2018-11-11 12:28] LABS: INTERNATIONAL NORMALIZED RATIO 1.08 (0.93-1.1); PROTHROMBIN TIME 11.3 Seconds (9.6-11.5)
[2018-11-11 12:33] LABS: ALANINE AMINOTRANSFERASE 23 U/L (12-78); ALBUMIN 3.3 g/dL (3.4-5.0); ANION GAP 10 mmol/L (5-15); CALCIUM 8.8 mg/dL (8.5-10.1); CHLORIDE 104 mmol/L (98-107); CREATININE 1.05 mg/dL (0.7-1.3)
[2018-11-11 12:34] LABS: BASOPHILS # (AUTO) 0.08 x10^3/uL (0-0.1); BASOPHILS % (AUTO) 0 % (0-1); EOSINOPHILS % (AUTO) 0 % (1-7); LYMPHOCYTES # (AUTO) 0.82 x10^3/uL (1-3.4); LYMPHOCYTES % (AUTO) 4 % (22-44); MD SCAN; MONOCYTES # (AUTO) 1.09 x10^3/uL (0.2-0.8); MONOCYTES % (AUTO) 5 % (2-9); NEUTROPHILS # (AUTO) 19.94 x10^3/uL (1.8-6.8); NEUTROPHILS % (AUTO) 91 % (42-75)
[2018-11-11 12:37] LABS: ALKALINE PHOSPHATASE 70 U/L (45-117); BILIRUBIN,TOTAL 0.4 mg/dL (0.2-1.0)
--- NOTE | 2018-11-11 12:41 | NUR ---
PT REMAINS ON BIPAP, BREATHING EVEN AND UNLABORED AND TOLERATING WELL
[2018-11-11 12:43] LABS: TROPONIN I 0.327 ng/mL (0.000-0.045)
[2018-11-11] MEDS ORDERED: PIPERACILLIN/TAZO/PMX 3.375GM 50 ML ONE (13:21)
[2018-11-11] MEDS ORDERED: methylPREDNISolone SOD SUCC 125 MG/2 ML ONE (13:21)
[2018-11-11] MEDS ORDERED: ASPIRIN 300 MG SUPP PR ONE (13:30)
[2018-11-11] MEDS ORDERED: VANCOMYCIN PER PHARMACY IV ONE (13:30)
[2018-11-11] MEDS ORDERED: VANCOMYCIN 1,400 MG in SODIUM CHLORIDE 0.9% 250 ML IV ONE (13:30)
[2018-11-11] MEDS ORDERED: PIPERACILLIN/TAZO/PMX 3.375GM 50 ML IVPB ONE (13:30)
--- NOTE | 2018-11-11 13:34 | NUR ---
PT CONTINUES TO TOLERATE BIPAP WELL. RT AT BEDSIDE EXAMINING PT
--- NOTE | 2018-11-11 13:45 | NUR ---
PT TAKEN OFF BIPAP BY RT AND PLACED ON OPTI-FLOW
[2018-11-11] MEDS ORDERED: ASPIRIN 325 MG TABLET PO ONE (14:00)
[2018-11-11] MEDS ORDERED: ASPIRIN 325 MG TABLET ONE (14:08)
--- NOTE | 2018-11-11 14:26 | NUR ---
REMAINS ON OPTIFLOW, WOB IMPROVED.
[2018-11-11] MEDS: ALBUTEROL/IPRATROPIUM 2.5MG/0.5MG, 3 ML NPPB SCH ×2 (15:00→20:00)
[2018-11-11] MEDS ORDERED: ACETAMINOPHEN 325 MG TABLET PO PRN (15:30)
[2018-11-11] MEDS: methylPREDNISolone SOD SUCC 125 MG/2 ML IVPush SCH ×2 (15:30→20:20)
[2018-11-11] MEDS ORDERED: ALBUTEROL SULFATE 2.5 MG/3 ML HHN PRN (15:30)
[2018-11-11] MEDS ORDERED: ONDANSETRON 2MG/ML, 2ML IVPush PRN (15:30)
[2018-11-11] MEDS ORDERED: LIDODERM 5% PATCH TD PRN (15:30)
--- NOTE | 2018-11-11 16:33 | NUR ---
SITTING UP ON EDGE OF BED WITH RAPID RESPIRATORY RATE AND HR. DR ZELAYA AT BEDSIDE. AWAITING RESPIRATORY. REMAIN WITH PT. ATTEMPTING TO GET PT TO SLOW BREATHING DOWN.
--- NOTE | 2018-11-11 16:42 | NUR ---
PT ON BIPAP. RT GIVING PT A TREATMENT. BREATHING SLOWING DOWN, HR SLOWING DOWN. EXTREMITIES MOTTLED
[2018-11-11] MEDS ORDERED: LORazepam 2 MG/ML, 1ML ONE (16:48)
--- NOTE | 2018-11-11 16:54 | NUR ---
PT BACK IN [facility] ON BIPAP. CONTINUE TO MONITOR
[2018-11-11] MEDS ORDERED: LORazepam 2 MG/ML, 1ML IVPush ONE (17:00)
--- NOTE | 2018-11-11 17:29 | NUR ---
REPORT TO GALINA DAVILA
[2018-11-11] MEDS: ALBUTEROL SULFATE 2.5 MG/3 ML HHN SCH (18:00)
[2018-11-11] MEDS: GUAIFENESIN ER 600 MG TABLET PO SCH (20:20)
[2018-11-11] MEDS: PIPERACILLIN/TAZO/PMX 3.375GM 50 ML IV SCH (20:20)
[2018-11-11 20:45] VITALS: BP 101/73
[2018-11-11 20:50] LABS: TROPONIN I 0.433 ng/mL (0.000-0.045)
[2018-11-11] MEDS: BUDESONIDE 0.5 MG/2 ML INHA HHN SCH (21:00)
[2018-11-11] MEDS ORDERED: BUDESONIDE 0.5 MG/2 ML INHA INH SCH (21:00)
[2018-11-12] MEDS: ALBUTEROL SULFATE 2.5 MG/3 ML HHN SCH ×3 (02:40→12:00)
[2018-11-12 02:44] LABS: TROPONIN I 0.391 ng/mL (0.000-0.045)
[2018-11-12] MEDS: methylPREDNISolone SOD SUCC 125 MG/2 ML IVPush SCH ×4 (03:01→23:35)
[2018-11-12] MEDS: PIPERACILLIN/TAZO/PMX 3.375GM 50 ML IV SCH ×4 (03:02→20:23)
[2018-11-12 04:54] LABS: BASOPHILS # (AUTO) 0.05 x10^3/uL (0-0.1); BASOPHILS % (AUTO) 1 % (0-1); EOSINOPHILS % (AUTO) 0 % (1-7); LYMPHOCYTES % (AUTO) 4 % (22-44); MD NO; MEAN CORPUSCULAR HEMOGLOBIN 30.4 pg (27.5-34.5); MEAN CORPUSCULAR HGB CONC 31.7 g/dL (33.2-36.2); MEAN PLATELET VOLUME 9.6 fL (7.4-10.4); MONOCYTES # (AUTO) 0.31 x10^3/uL (0.2-0.8); MONOCYTES % (AUTO) 4 % (2-9); NEUTROPHILS # (AUTO) 7.31 x10^3/uL (1.8-6.8); NEUTROPHILS % (AUTO) 92 % (42-75); PLATELET COUNT 227 x10^3/uL (130-400); RED BLOOD COUNT 3.61 x10^6/uL (4.38-5.82); RED CELL DISTRIBUTION WIDTH 14.6 % (9.4-14.8)
[2018-11-12 05:01] LABS: ANION GAP 5 mmol/L (5-15); CALCIUM 8.4 mg/dL (8.5-10.1); CHLORIDE 109 mmol/L (98-107); CREATININE 0.76 mg/dL (0.7-1.3)
[2018-11-12] MEDS: ENOXAPARIN 40 MG/0.4 ML SQ SCH (05:08)
[2018-11-12] MEDS: GUAIFENESIN ER 600 MG TABLET PO SCH ×2 (09:00→20:23)
[2018-11-12] MEDS: ASPIRIN 81 MG TABLET EC PO SCH (09:00)
[2018-11-12] MEDS: IPRATROPIUM 0.5 MG/2.5 ML INHA HHN SCH ×2 (09:00→15:00)
[2018-11-12] MEDS: ALBUTEROL/IPRATROPIUM 2.5MG/0.5MG, 3 ML NPPB SCH ×3 (09:20→18:44)
[2018-11-12] MEDS: BUDESONIDE 0.5 MG/2 ML INHA HHN SCH ×2 (09:20→18:44)
[2018-11-13] MEDS: ALBUTEROL/IPRATROPIUM 2.5MG/0.5MG, 3 ML NPPB SCH ×6 (02:00→21:57)
[2018-11-13] MEDS: PIPERACILLIN/TAZO/PMX 3.375GM 50 ML IV SCH ×4 (02:06→20:03)
[2018-11-13] MEDS ORDERED: LORazepam 2 MG/ML, 1ML ONE (02:44)
[2018-11-13] MEDS ORDERED: LORazepam 2 MG/ML, 1ML IVPush ONE (03:00)
[2018-11-13] MEDS: ENOXAPARIN 40 MG/0.4 ML SQ SCH (05:55)
[2018-11-13] MEDS: methylPREDNISolone SOD SUCC 125 MG/2 ML IVPush SCH ×3 (07:53→22:52)
[2018-11-13] MEDS: GUAIFENESIN ER 600 MG TABLET PO SCH ×2 (07:54→20:03)
[2018-11-13] MEDS: ASPIRIN 81 MG TABLET EC PO SCH (07:54)
[2018-11-13] MEDS: BUDESONIDE 0.5 MG/2 ML INHA HHN SCH ×2 (09:00→19:04)
[2018-11-13] MEDS: BUSPIRONE 5 MG TABLET PO SCH ×3 (09:52→20:03)
[2018-11-14] MEDS: PIPERACILLIN/TAZO/PMX 3.375GM 50 ML IV SCH ×4 (01:48→20:29)
[2018-11-14] MEDS: ALBUTEROL/IPRATROPIUM 2.5MG/0.5MG, 3 ML NPPB SCH ×6 (02:38→23:00)
[2018-11-14 04:47] LABS: BASOPHILS % (AUTO) 0 % (0-1); EOSINOPHILS # (AUTO) 0.01 x10^3/uL (0-0.4); EOSINOPHILS % (AUTO) 0 % (1-7); LYMPHOCYTES # (AUTO) 0.24 x10^3/uL (1-3.4); LYMPHOCYTES % (AUTO) 2 % (22-44); MD NO; MEAN CORPUSCULAR HGB CONC 32.3 g/dL (33.2-36.2); MEAN PLATELET VOLUME 10.2 fL (7.4-10.4); MONOCYTES # (AUTO) 0.44 x10^3/uL (0.2-0.8); MONOCYTES % (AUTO) 4 % (2-9); NEUTROPHILS # (AUTO) 10.62 x10^3/uL (1.8-6.8); NEUTROPHILS % (AUTO) 94 % (42-75); PLATELET COUNT 225 x10^3/uL (130-400); RED CELL DISTRIBUTION WIDTH 14.7 % (9.4-14.8)
[2018-11-14 04:56] LABS: ANION GAP 2 mmol/L (5-15); CALCIUM 8.6 mg/dL (8.5-10.1); CHLORIDE 104 mmol/L (98-107); CREATININE 0.85 mg/dL (0.7-1.3)
[2018-11-14] MEDS: methylPREDNISolone SOD SUCC 125 MG/2 ML IVPush SCH ×3 (06:24→23:50)
[2018-11-14] MEDS: BUDESONIDE 0.5 MG/2 ML INHA HHN SCH ×2 (09:00→18:42)
[2018-11-14] MEDS: BUSPIRONE 5 MG TABLET PO SCH ×3 (09:28→20:28)
[2018-11-14] MEDS: ASPIRIN 81 MG TABLET EC PO SCH (09:28)
[2018-11-14] MEDS: GUAIFENESIN ER 600 MG TABLET PO SCH ×2 (09:28→20:28)
[2018-11-14] MEDS: POTASSIUM CHLORIDE 20 MEQ TAB.ER.PRT PO SCH (16:26)
[2018-11-14] MEDS: FUROSEMIDE 40 MG/4 ML IV SCH (16:26)
[2018-11-14] MEDS: ENOXAPARIN 40 MG/0.4 ML SQ SCH (23:50)
[2018-11-15] MEDS: ALBUTEROL/IPRATROPIUM 2.5MG/0.5MG, 3 ML NPPB SCH ×6 (02:15→23:00)
[2018-11-15] MEDS: PIPERACILLIN/TAZO/PMX 3.375GM 50 ML IV SCH ×4 (03:04→20:41)
[2018-11-15 05:38] LABS: EOSINOPHILS % (AUTO) 0 % (1-7); MD NO
[2018-11-15 05:58] LABS: BASOPHILS # (AUTO) 0.02 x10^3/uL (0-0.1); BASOPHILS % (AUTO) 0 % (0-1); LYMPHOCYTES # (AUTO) 0.25 x10^3/uL (1-3.4); LYMPHOCYTES % (AUTO) 2 % (22-44); MEAN CORPUSCULAR HEMOGLOBIN 29.8 pg (27.5-34.5); MEAN CORPUSCULAR HGB CONC 31.6 g/dL (33.2-36.2); MEAN CORPUSCULAR VOLUME 94.3 fL (81-97); MEAN PLATELET VOLUME 10.2 fL (7.4-10.4); MONOCYTES # (AUTO) 0.46 x10^3/uL (0.2-0.8); MONOCYTES % (AUTO) 4 % (2-9); NEUTROPHILS # (AUTO) 10.17 x10^3/uL (1.8-6.8); NEUTROPHILS % (AUTO) 93 % (42-75); PLATELET COUNT 223 x10^3/uL (130-400); RED BLOOD COUNT 3.72 x10^6/uL (4.38-5.82); RED CELL DISTRIBUTION WIDTH 14.6 % (9.4-14.8)
[2018-11-15 06:58] LABS: ANION GAP 4 mmol/L (5-15); CALCIUM 8.9 mg/dL (8.5-10.1); CHLORIDE 102 mmol/L (98-107)
[2018-11-15] MEDS: BUDESONIDE 0.5 MG/2 ML INHA HHN SCH ×2 (08:12→19:51)
[2018-11-15] MEDS: GUAIFENESIN ER 600 MG TABLET PO SCH ×2 (08:45→20:41)
[2018-11-15] MEDS: methylPREDNISolone SOD SUCC 125 MG/2 ML IVPush SCH ×3 (08:45→23:57)
[2018-11-15] MEDS: BUSPIRONE 5 MG TABLET PO SCH ×3 (08:45→20:41)
[2018-11-15] MEDS: FUROSEMIDE 40 MG/4 ML IV SCH ×2 (08:45→17:18)
[2018-11-15] MEDS: ASPIRIN 81 MG TABLET EC PO SCH (08:48)
[2018-11-15] MEDS: POTASSIUM CHLORIDE 20 MEQ TAB.ER.PRT PO SCH ×2 (08:49→17:18)
[2018-11-15] MEDS: DOXYCYCLINE 100MG TABLET PO SCH ×2 (08:51→20:41)
[2018-11-15] MEDS: ENOXAPARIN 40 MG/0.4 ML SQ SCH (23:57)
[2018-11-16] MEDS: ALBUTEROL/IPRATROPIUM 2.5MG/0.5MG, 3 ML NPPB SCH ×6 (02:46→22:52)
[2018-11-16] MEDS: PIPERACILLIN/TAZO/PMX 3.375GM 50 ML IV SCH ×4 (03:49→21:21)
[2018-11-16 05:46] LABS: BASOPHILS # (AUTO) 0.06 x10^3/uL (0-0.1); BASOPHILS % (AUTO) 1 % (0-1); EOSINOPHILS % (AUTO) 0 % (1-7); LYMPHOCYTES % (AUTO) 3 % (22-44); MD NO; MEAN CORPUSCULAR HEMOGLOBIN 30.9 pg (27.5-34.5); MEAN CORPUSCULAR VOLUME 96.7 fL (81-97); MEAN PLATELET VOLUME 9.9 fL (7.4-10.4); MONOCYTES # (AUTO) 0.48 x10^3/uL (0.2-0.8); MONOCYTES % (AUTO) 4 % (2-9); NEUTROPHILS # (AUTO) 11.22 x10^3/uL (1.8-6.8); NEUTROPHILS % (AUTO) 92 % (42-75); PLATELET COUNT 235 x10^3/uL (130-400); RED BLOOD COUNT 4.04 x10^6/uL (4.38-5.82); RED CELL DISTRIBUTION WIDTH 14.3 % (9.4-14.8)
[2018-11-16 06:00] LABS: ANION GAP 3 mmol/L (5-15); CALCIUM 9.2 mg/dL (8.5-10.1); CHLORIDE 96 mmol/L (98-107)
[2018-11-16 06:02] LABS: CREATININE 1.03 mg/dL (0.7-1.3)
[2018-11-16] MEDS: BUDESONIDE 0.5 MG/2 ML INHA HHN SCH ×2 (06:18→19:50)
[2018-11-16] MEDS: POTASSIUM CHLORIDE 20 MEQ TAB.ER.PRT PO SCH ×2 (08:42→16:43)
[2018-11-16] MEDS: methylPREDNISolone SOD SUCC 125 MG/2 ML IVPush SCH ×2 (08:42→20:10)
[2018-11-16] MEDS: BUSPIRONE 5 MG TABLET PO SCH ×3 (08:42→21:21)
[2018-11-16] MEDS: DOXYCYCLINE 100MG TABLET PO SCH ×2 (08:42→21:21)
[2018-11-16] MEDS: ASPIRIN 81 MG TABLET EC PO SCH (08:42)
[2018-11-16] MEDS: FUROSEMIDE 40 MG/4 ML IV SCH ×2 (08:42→16:43)
[2018-11-16] MEDS: GUAIFENESIN ER 600 MG TABLET PO SCH ×2 (08:43→21:22)
[2018-11-17] MEDS: ENOXAPARIN 40 MG/0.4 ML SQ SCH ×2 (00:08→23:15)
[2018-11-17] MEDS: ALBUTEROL/IPRATROPIUM 2.5MG/0.5MG, 3 ML NPPB SCH ×6 (03:00→23:22)
[2018-11-17] MEDS: PIPERACILLIN/TAZO/PMX 3.375GM 50 ML IV SCH ×3 (03:13→20:00)
[2018-11-17 04:41] LABS: BASOPHILS # (AUTO) 0.02 x10^3/uL (0-0.1); BASOPHILS % (AUTO) 0 % (0-1); EOSINOPHILS % (AUTO) 0 % (1-7); LYMPHOCYTES # (AUTO) 0.38 x10^3/uL (1-3.4); LYMPHOCYTES % (AUTO) 3 % (22-44); MD NO; MEAN CORPUSCULAR HEMOGLOBIN 30.9 pg (27.5-34.5); MEAN CORPUSCULAR HGB CONC 32.3 g/dL (33.2-36.2); MEAN CORPUSCULAR VOLUME 95.7 fL (81-97); MEAN PLATELET VOLUME 10.6 fL (7.4-10.4); MONOCYTES # (AUTO) 0.92 x10^3/uL (0.2-0.8); MONOCYTES % (AUTO) 7 % (2-9); NEUTROPHILS # (AUTO) 12.46 x10^3/uL (1.8-6.8); NEUTROPHILS % (AUTO) 90 % (42-75); PLATELET COUNT 224 x10^3/uL (130-400); RED BLOOD COUNT 4.15 x10^6/uL (4.38-5.82); RED CELL DISTRIBUTION WIDTH 14.6 % (9.4-14.8)
[2018-11-17 04:51] LABS: ALBUMIN 2.9 g/dL (3.4-5.0); ANION GAP 5 mmol/L (5-15); CALCIUM 8.9 mg/dL (8.5-10.1); CHLORIDE 98 mmol/L (98-107)
[2018-11-17 04:56] LABS: ALANINE AMINOTRANSFERASE 89 U/L (12-78); ALKALINE PHOSPHATASE 43 U/L (45-117); BILIRUBIN,TOTAL 0.6 mg/dL (0.2-1.0); CREATININE 1.03 mg/dL (0.7-1.3); TOTAL PROTEIN 6.1 g/dL (6.4-8.2)
[2018-11-17] MEDS: BUDESONIDE 0.5 MG/2 ML INHA HHN SCH ×2 (06:48→23:22)
[2018-11-17] MEDS: GUAIFENESIN ER 600 MG TABLET PO SCH ×2 (08:02→21:54)
[2018-11-17] MEDS: methylPREDNISolone SOD SUCC 125 MG/2 ML IVPush SCH ×2 (08:02→20:35)
[2018-11-17] MEDS: FUROSEMIDE 40 MG/4 ML IV SCH ×2 (08:02→16:42)
[2018-11-17] MEDS: ASPIRIN 81 MG TABLET EC PO SCH (08:03)
[2018-11-17] MEDS: DOXYCYCLINE 100MG TABLET PO SCH ×2 (08:03→21:54)
[2018-11-17] MEDS: POTASSIUM CHLORIDE 20 MEQ TAB.ER.PRT PO SCH ×2 (08:03→16:42)
[2018-11-17] MEDS: BUSPIRONE 5 MG TABLET PO SCH ×3 (08:05→23:15)
[2018-11-17 11:06] VITALS: BP 132/80
[2018-11-17 12:40] VITALS: BP 126/84
[2018-11-17 19:45] VITALS: BP 123/79
[2018-11-17 23:14] VITALS: BP 113/65
[2018-11-18 01:10] VITALS: BP 123/79
[2018-11-18] MEDS: PIPERACILLIN/TAZO/PMX 3.375GM 50 ML IV SCH ×4 (02:13→20:36)
[2018-11-18] MEDS: ALBUTEROL/IPRATROPIUM 2.5MG/0.5MG, 3 ML NPPB SCH ×6 (02:50→21:09)
[2018-11-18 05:28] LABS: MEAN CORPUSCULAR HEMOGLOBIN 30.3 pg (27.5-34.5); MEAN CORPUSCULAR HGB CONC 31.8 g/dL (33.2-36.2); MEAN CORPUSCULAR VOLUME 95.3 fL (81-97); MEAN PLATELET VOLUME 9.5 fL (7.4-10.4); PLATELET COUNT 238 x10^3/uL (130-400); RED CELL DISTRIBUTION WIDTH 14.4 % (9.4-14.8)
[2018-11-18 05:42] LABS: ANION GAP 7 mmol/L (5-15); CALCIUM 8.8 mg/dL (8.5-10.1); CHLORIDE 97 mmol/L (98-107)
[2018-11-18 05:45] LABS: CREATININE 1.07 mg/dL (0.7-1.3)
[2018-11-18 05:47] LABS: BASOPHILS % (AUTO) 1 % (0-1); EOSINOPHILS % (AUTO) 0 % (1-7); LYMPHOCYTES # (AUTO) 0.31 x10^3/uL (1-3.4); LYMPHOCYTES % (AUTO) 2 % (22-44); MD SCAN; MONOCYTES % (AUTO) 7 % (2-9); NEUTROPHILS # (AUTO) 12.59 x10^3/uL (1.8-6.8); NEUTROPHILS % (AUTO) 91 % (42-75)
[2018-11-18 06:20] VITALS: BP 132/86
[2018-11-18] MEDS: BUDESONIDE 0.5 MG/2 ML INHA HHN SCH ×2 (06:38→21:00)
[2018-11-18] MEDS: methylPREDNISolone SOD SUCC 125 MG/2 ML IVPush SCH ×2 (08:01→20:36)
[2018-11-18] MEDS: FUROSEMIDE 40 MG/4 ML IV SCH ×2 (08:01→16:04)
[2018-11-18] MEDS: BUSPIRONE 5 MG TABLET PO SCH ×3 (08:02→20:37)
[2018-11-18] MEDS: DOXYCYCLINE 100MG TABLET PO SCH ×2 (08:02→20:36)
[2018-11-18] MEDS: ASPIRIN 81 MG TABLET EC PO SCH (08:02)
[2018-11-18] MEDS: GUAIFENESIN ER 600 MG TABLET PO SCH ×2 (08:02→20:37)
[2018-11-18] MEDS: POTASSIUM CHLORIDE 20 MEQ TAB.ER.PRT PO SCH ×2 (08:02→16:03)
[2018-11-18 09:02] VITALS: BP 117/81
[2018-11-18 14:08] VITALS: BP 136/90
[2018-11-18 18:54] VITALS: BP 129/84
[2018-11-18] MEDS: ENOXAPARIN 40 MG/0.4 ML SQ SCH (23:27)
[2018-11-18] MEDS ORDERED: ALBUTEROL SULFATE 2.5 MG/3 ML HHN PRN (23:30)
[2018-11-19 01:25] VITALS: BP 121/83
[2018-11-19] MEDS: ALBUTEROL/IPRATROPIUM 2.5MG/0.5MG, 3 ML NPPB SCH ×6 (03:00→23:15)
[2018-11-19 05:33] LABS: MEAN CORPUSCULAR HEMOGLOBIN 31.1 pg (27.5-34.5); MEAN CORPUSCULAR HGB CONC 32.6 g/dL (33.2-36.2); MEAN CORPUSCULAR VOLUME 95.3 fL (81-97); MEAN PLATELET VOLUME 9.6 fL (7.4-10.4); PLATELET COUNT 269 x10^3/uL (130-400); RED BLOOD COUNT 4.48 x10^6/uL (4.38-5.82); RED CELL DISTRIBUTION WIDTH 14.9 % (9.4-14.8)
[2018-11-19 05:42] LABS: ANION GAP 3 mmol/L (5-15); CALCIUM 8.7 mg/dL (8.5-10.1); CHLORIDE 95 mmol/L (98-107); CREATININE 1.08 mg/dL (0.7-1.3)
[2018-11-19 06:11] LABS: BASOPHILS # (AUTO) 0.02 x10^3/uL (0-0.1); BASOPHILS % (AUTO) 0 % (0-1); EOSINOPHILS # (AUTO) 0.01 x10^3/uL (0-0.4); EOSINOPHILS % (AUTO) 0 % (1-7); LYMPHOCYTES # (AUTO) 0.53 x10^3/uL (1-3.4); LYMPHOCYTES % (AUTO) 3 % (22-44); MD SCAN; MONOCYTES # (AUTO) 0.92 x10^3/uL (0.2-0.8); MONOCYTES % (AUTO) 5 % (2-9); NEUTROPHILS # (AUTO) 16.21 x10^3/uL (1.8-6.8); NEUTROPHILS % (AUTO) 92 % (42-75)
[2018-11-19] MEDS: FUROSEMIDE 20 MG/2 ML IV SCH ×2 (06:30→16:53)
[2018-11-19] MEDS: methylPREDNISolone SOD SUCC 125 MG/2 ML IVPush SCH ×2 (06:31→19:54)
[2018-11-19 08:40] VITALS: BP 118/84
[2018-11-19] MEDS: BUDESONIDE 0.5 MG/2 ML INHA HHN SCH ×2 (09:00→19:08)
[2018-11-19] MEDS ORDERED: LISINOPRIL 5 MG TABLET PO SCH (09:00)
[2018-11-19] MEDS: DOXYCYCLINE 100MG TABLET PO SCH ×2 (09:29→19:55)
[2018-11-19] MEDS: GUAIFENESIN ER 600 MG TABLET PO SCH ×2 (09:29→19:55)
[2018-11-19] MEDS: ASPIRIN 81 MG TABLET EC PO SCH (09:29)
[2018-11-19] MEDS: BUSPIRONE 5 MG TABLET PO SCH ×3 (09:29→19:54)
[2018-11-19 13:10] VITALS: BP 108/61
[2018-11-19 19:19] VITALS: BP 117/76
[2018-11-19] MEDS: ENOXAPARIN 40 MG/0.4 ML SQ SCH (22:50)
[2018-11-20 01:13] VITALS: BP 110/66
[2018-11-20] MEDS: ALBUTEROL/IPRATROPIUM 2.5MG/0.5MG, 3 ML NPPB SCH ×4 (03:00→13:55)
[2018-11-20] MEDS: BUDESONIDE 0.5 MG/2 ML INHA HHN SCH (06:32)
[2018-11-20 06:39] LABS: MEAN CORPUSCULAR HGB CONC 32.2 g/dL (33.2-36.2); MEAN CORPUSCULAR VOLUME 96.1 fL (81-97); MEAN PLATELET VOLUME 9.5 fL (7.4-10.4); PLATELET COUNT 274 x10^3/uL (130-400); RED BLOOD COUNT 4.59 x10^6/uL (4.38-5.82); RED CELL DISTRIBUTION WIDTH 14.8 % (9.4-14.8)
[2018-11-20 06:49] LABS: ALANINE AMINOTRANSFERASE 52 U/L (12-78); ALBUMIN 3.1 g/dL (3.4-5.0); ANION GAP 2 mmol/L (5-15); CALCIUM 8.9 mg/dL (8.5-10.1); CHLORIDE 97 mmol/L (98-107)
[2018-11-20 06:51] LABS: ALKALINE PHOSPHATASE 46 U/L (45-117); BILIRUBIN,TOTAL 0.5 mg/dL (0.2-1.0); CREATININE 1.18 mg/dL (0.7-1.3); TOTAL PROTEIN 6.3 g/dL (6.4-8.2)
[2018-11-20 07:15] LABS: BAND#(MANUAL) 0.41 x10^3/uL; BANDS%(MANUAL) 2 % (0-7); LYMPH#(MANUAL) 1.03 x10^3/uL (1-3.4); LYMPHS% (MANUAL) 5 % (22-44); MD YES; METAMYELOCYTES# (MANUAL) 0.82 x10^3/uL (0-0); METAMYELOCYTES% (MANUAL) 4 % (0-1); MONOS#(MANUAL) 1.03 x10^3/uL (0.3-2.7); MONOS% (MANUAL) 5 % (2-9); SEG#(MANUAL) 16.89 x10^3/uL (1.8-6.8); SEGS% (MANUAL) 82 % (42-75)
[2018-11-20 07:16] LABS: <PLATELET ESTIMATE> ADEQUATE; <PLT MORPHOLOGY> NORMAL PLT MORPH; <RBC MORPHOLOGY> NORMAL; MYELOCYTES# (MANUAL) 0.41 x10^3/uL (0-0); MYELOCYTES% (MANUAL) 2 % (0-0)
[2018-11-20 07:47] VITALS: BP 112/76
[2018-11-20] MEDS: methylPREDNISolone SOD SUCC 125 MG/2 ML IVPush SCH (07:59)
[2018-11-20] MEDS: FUROSEMIDE 20 MG/2 ML IV SCH (07:59)
[2018-11-20] MEDS: ASPIRIN 81 MG TABLET EC PO SCH (08:00)
[2018-11-20] MEDS: BUSPIRONE 5 MG TABLET PO SCH (08:00)
[2018-11-20] MEDS: GUAIFENESIN ER 600 MG TABLET PO SCH (08:00)
[2018-11-20] MEDS: DOXYCYCLINE 100MG TABLET PO SCH (08:00)
[2018-11-20 14:44] VITALS: BP 120/80
[2018-11-20] MEDS ORDERED: PRED20TA PO (14:52)
[2018-11-20] MEDS ORDERED: ALPR0.254 PO (14:52)
[2018-11-20] MEDS ORDERED: FURO40TA6 PO (14:56)
[2018-11-20] MEDS ORDERED: FUROSEMIDE 40 MG TABLET PO SCH (17:00)
== END 2018-11-20 16:00 | disposition home or self-care (01) | DRG 871 ==
LOC: ED 12:05 → EDIP 13:45 → CCU 17:48 → 5SO 11-17 10:32 → 3NW 11-20 02:15 → DCLOUNGE 11-20 15:34
PROVIDERS: ADMIT Internal Medicine; ATTEND Internal Medicine
PROC: 5A09357 Assistance with Respiratory Ventilation, Less than 24 Consecutive Hours, Continuous Positive Airway Pressure (ICD-10-PCS; principal; 2018-11-11)
DX: A41.9 Sepsis, unspecified organism (principal); J69.0 Pneumonitis due to inhalation of food and vomit; J96.21 Acute and chronic respiratory failure with hypoxia; I50.23 Acute on chronic systolic (congestive) heart failure; I42.9 Cardiomyopathy, unspecified; J98.11 Atelectasis; R65.20 Severe sepsis without septic shock; E87.5 Hyperkalemia; F41.9 Anxiety disorder, unspecified; G89.29 Other chronic pain; I08.0 Rheumatic disorders of both mitral and aortic valves; I11.0 Hypertensive heart disease with heart failure; I44.7 Left bundle-branch block, unspecified; I48.0 Paroxysmal atrial fibrillation; J43.9 Emphysema, unspecified; Z51.5 Encounter for palliative care; Z87.891 Personal history of nicotine dependence; Z99.81 Dependence on supplemental oxygen
CPT/HCPCS: 36415; 36600; 71045; 71046; 74230; 80048; 80053; 82803; 83605; 83735; 83880; 84100; 84132; 84484; 85025; 85610; 86850; 86900; 87040; 87081; 93005; 93306; 94640; 94660; 96374; 96375; G0378; J1650; J1940; J2543; J3370; J7613; J7620; J7626; J2060; J2930; J7030; J7050

== ENCOUNTER 2018-12-11 15:13 | Inpatient (IN) | payer MEDICARE ==
[~2018-12-11] VITALS: Ht 175.3 cm; Wt 77.9 kg
[2018-12-30 12:30] VITALS: BP 119/82
== END 2018-12-30 12:36 | disposition home or self-care (01) | DRG 180 ==
LOC: ED 16:44 → EDIP 16:45 → ED 16:51 → 4EST 18:13 → CCU 12-13 22:21 → 5SO 12-16 13:51 → 4WST 12-22 19:27
PROVIDERS: ADMIT Internal Medicine; ATTEND Internal Medicine
PROC: 0BBG3ZX Excision of Left Upper Lung Lobe, Percutaneous Approach, Diagnostic (ICD-10-PCS; principal; 2018-12-18)
DX: C34.12 Malignant neoplasm of upper lobe, left bronchus or lung (principal); J96.21 Acute and chronic respiratory failure with hypoxia; G93.41 Metabolic encephalopathy; I21.A1 Myocardial infarction type 2; I50.23 Acute on chronic systolic (congestive) heart failure; E44.1 Mild protein-calorie malnutrition; B37.0 Candidal stomatitis; E87.1 Hypo-osmolality and hyponatremia; I42.9 Cardiomyopathy, unspecified; N17.9 Acute kidney failure, unspecified; D64.9 Anemia, unspecified; E87.5 Hyperkalemia; E87.6 Hypokalemia; F41.9 Anxiety disorder, unspecified; G47.00 Insomnia, unspecified; G89.29 Other chronic pain; I34.0 Nonrheumatic mitral (valve) insufficiency; I48.0 Paroxysmal atrial fibrillation; J20.9 Acute bronchitis, unspecified; J43.9 Emphysema, unspecified; J98.4 Other disorders of lung; T38.0X5A Adverse effect of glucocorticoids and synthetic analogues, initial encounter; I44.7 Left bundle-branch block, unspecified; R73.9 Hyperglycemia, unspecified; R00.0 Tachycardia, unspecified; Z51.5 Encounter for palliative care; Y92.89 Other specified places as the place of occurrence of the external cause; Z87.891 Personal history of nicotine dependence; Z99.81 Dependence on supplemental oxygen; Z68.25 Body mass index [BMI] 25.0-25.9, adult; I95.9 Hypotension, unspecified
CPT/HCPCS: 32405; 36415; 36600; 71045; 71275; 74177; 77012; 80048; 80053; 82803; 82962; 83036; 83605; 83735; 83880; 84132; 84145; 84484; 85014; 85018; 85025; 85379; 85520; 87070; 87077; 87081; 87186; 87205; 88305; 88333; 88341; 88342; 93005; 93970; 94640; 99156; 99157; G0378; J0610; J1644; J1650; J1815; J2250; J3010; J7060; J7613; J7620; J7626; Q9967; J2060; J2270; J2310; J2920; J2930; J7030; J7050; J7512